=== PATIENT | female | born 1940 | race Caucasian/White ===

== ENCOUNTER → 2017-04-19 | Outpatient (CLI) | payer BC ==
--- NOTE | 2017-04-19 13:41 | MAMMOGRAPHY REPORT ---
BILATERAL DIGITAL SCREENING MAMMOGRAM TOMOSYNTHESIS WITH CAD: 04/19/2017 CLINICAL HISTORY: Routine screening. TECHNIQUE: Breast tomosynthesis in addition to standard 2D mammography was performed. Current study was also evaluated with a Computer Aided Detection (CAD) system. COMPARISON: Comparison is made to exams dated: 04/13/2016 mammogram, 04/08/2015 mammogram, 04/02/2014 m ammogram, 03/27/2013 mammogram, 03/21/2012 mammogram, and 03/16/2011 mammogram - [facility]. BREAST COMPOSITION: The tissue of both breasts is heterogeneously dense, which may obscure small mas ses. FINDINGS: No suspicious masses, calcifications, or areas of architectural distortion are noted in ei ther breast. There has been no significant interval change compared to prior exams. Scattered bilater al benign-appearing calcifications are not significantly changed. IMPRESSION: ACR BI-RADS CATEGORY 2: BENIGN There is no mammographic evidence of malignancy. A 1 year screening mammogram is recommended. The pa tient will receive written notification of the results. Approximately 10% of breast cancers are not detected with mammography. A negative mammographic report should not delay biopsy if a clinically suggestive mass is present. Magdalena Chapman M.D. ah/:04/19/2017 09:53:46 Hydro Operator: Dre SMITH)(M), [facility] letter sent: Normal 1/2 BI-RADS Code: ACR BI-RADS Category 2: Benign
== END | disposition home or self-care (01) ==
LOC: C.MAMM 09:27
PROVIDERS: ATTEND Internal Medicine
DX: Z12.31 Encounter for screening mammogram for malignant neoplasm of breast (principal)

== ENCOUNTER → 2017-06-05 | Outpatient (CLI) | payer BC ==
[2017-06-05 12:15] LABS: HEMATOCRIT 40.8 % (37-47); MEAN CELL VOLUME 92.3 fL (80-100); MEAN CORPUSCULAR HEMOGLOBIN 30.1 pg (25-34); MEAN CORPUSCULAR HGB CONC 32.6 g/dl (32-36); MEAN PLATELET VOLUME 9.9 fL (7.4-10.4); PLATELET COUNT 252 K/uL (130-400); RED BLOOD COUNT 4.42 M/uL (4.2-5.4); WHITE BLOOD COUNT 6.95 K/uL (4.8-10.8)
[2017-06-05 12:37] LABS: ALT/SGPT 17 U/L (12-78); BLOOD UREA NITROGEN 18 mg/dl (7-18); CALCIUM 9.6 mg/dl (8.5-10.1); CARBON DIOXIDE 28 mmol/L (21-32); CHLORIDE 104 mmol/L (98-107); CHOLESTEROL 136 mg/dl (0-200); CREATININE 0.97 mg/dl (0.60-1.20); GLUCOSE 93 mg/dl (70-99); POTASSIUM 4.1 mmol/L (3.5-5.1); SODIUM 139 mmol/L (136-145)
[2017-06-05 12:48] LABS: ALB/GLOB RATIO 0.9 (0.9-2); ALKALINE PHOSPHATASE 110 U/L (45-117); AST/SGOT 14 U/L (15-37); CHOLESTEROL/HDL RATIO 1.8; HDL CHOLESTEROL 76 mg/dl; LDL CHOLESTEROL CALCULATED 43 mg/dl; TRIGLYCERIDES 83 mg/dl (0-150); VERY LOW DENSITY LIPOPROT CALC 17 mg/dl
== END | disposition home or self-care (01) ==
LOC: C.LABPBG 07:54
PROVIDERS: ATTEND Internal Medicine Cardiovascular Disease
DX: I34.0 Nonrheumatic mitral (valve) insufficiency (principal)

== ENCOUNTER → 2018-01-24 | Outpatient (CLI) | payer BC ==
[~2018-01-24] MED LIST: ATOR-24 PO; CHOL100027 PO; DILT-113 PO; LOSA1TAB PO; METO-452 PO; OMEG10007 PO; OXYC-57 PO; WARF-280 PO; ZNT150 PO
[2018-01-24 14:34] LABS: BASO % 0.2 %; BASO ABS # 0.02 K/uL (0-0.2); EOS % 1.4 %; EOS ABS # 0.12 K/uL (0-0.5); HEMATOCRIT 37.7 % (37-47); HEMOGLOBIN 12.1 g/dL (12.0-16.0); IG# 0.01 K/uL (0.00-0.02); LYMPH % 36.4 %; LYMPH ABS # 3.03 K/uL (1.2-3.4); MEAN CELL VOLUME 90.4 fL (80-100); MEAN CORPUSCULAR HGB CONC 32.1 g/dl (32-36); MEAN PLATELET VOLUME 9.7 fL (7.4-10.4); MONO % 7.3 %; MONO ABS # 0.61 K/uL (0.11-0.59); NEUT % 54.6 %; NEUT ABS # 4.53 K/uL (1.4-6.5); PLATELET COUNT 289 K/uL (130-400); RED CELL DISTRIBUTION WIDTH CV 14.7 % (11.5-14.5); RED CELL DISTRIBUTION WIDTH SD 48.1 fL (36.4-46.3); WHITE BLOOD COUNT 8.32 K/uL (4.8-10.8)
[2018-01-24 14:42] LABS: INR 1.9 (0.9-1.1)
[2018-01-24 15:07] LABS: ALBUMIN 3.6 gm/dl (3.4-5.0); ALKALINE PHOSPHATASE 96 U/L (45-117); ALT/SGPT 16 U/L (12-78); AST/SGOT 17 U/L (15-37); BLOOD UREA NITROGEN 16 mg/dl (7-18); CALCIUM 9.7 mg/dl (8.5-10.1); CARBON DIOXIDE 29 mmol/L (21-32); CREATININE 0.76 mg/dl (0.60-1.20); GLUCOSE 81 mg/dl (70-99); POTASSIUM 3.7 mmol/L (3.5-5.1); SODIUM 139 mmol/L (136-145); TOTAL PROTEIN 7.4 gm/dl (6.4-8.2)
== END | disposition home or self-care (01) ==
LOC: C.LAB1850 12:42
PROVIDERS: ATTEND Internal Medicine
DX: K56.609 Unspecified intestinal obstruction, unspecified as to partial versus complete obstruction (principal); Z79.01 Long term (current) use of anticoagulants

== ENCOUNTER 2019-03-04 05:13 | Inpatient (IN) ==
--- NOTE | 2019-02-12 14:04 | PAT Medication Instructions ---
Medication Instructions Date of Service February 12, 2019 Home Medications Medication Instructions Recorded metoprolol succinate 25 mg PO QPM 30 Days #15 tab 04/24/18 warfarin 2.5 mg PO DAILY #0 tab 04/24/18 omega 9-jnf-qql-fish oil [Fish Oil] 1 cap PO QAM atorvastatin 20 mg PO HS diltiazem HCl 180 mg PO QAM metoprolol succinate 25 mg PO QPM warfarin 2.5 mg PO DAILY cholecalciferol (vitamin D3) [Vitamin D3] 4,000 unit PO QAM ASK your prescriber and surgeon warfarin 2.5 mg PO DAILY STOP taking 2 weeks before surgery (or as soon as possible if surgery is within 2 weeks) omega 9-xij-bdn-fish oil [Fish Oil] 1 cap PO QAM DO NOT take the morning of surgery cholecalciferol (vitamin D3) [Vitamin D3] 4,000 unit PO QAM Take morning of surgery With a small sip of water, OTHERWISE NOTHING TO EAT OR DRINK AFTER MIDNIGHT: diltiazem HCl 180 mg PO QAM Take evening before surgery atorvastatin 20 mg PO HS metoprolol succinate 25 mg PO QPM Other Notes If you have any questions please call us at [phone] or [phone] or [phone] or [phone]
--- NOTE | 2019-02-13 09:56 | Anesthesiology Consultation ---
Date of Service February 13, 2019 Assessment & Plan (1) Encounter for pre-operative examination: - Cardio: 02/20/19: "She is currently stable and asymptomatic from a cardiovascular standpoint with no anginal symptoms occurring at >4 METS of activity. She has known severe mitral regurgitation for which she has declined surgical intervention, but fortunately, she has no evidence of congestive heart failure. Her heart rate and blood pressure are well controlled. Given this information, the patient is at an acceptable risk to proceed with upcoming surgery without any additional cardiovascular testing or intervention. Recommend close monitoring and avoidance of hypotension, hypertension, tachycardia, hypoxia, and significant anemia throughout the perioperative period to reduce myocardial oxygen demand and meet myocardial oxygen delivery." - Check coags AM DOS Chart Review Chart Review: Acceptable Risk for Surgery and Patient seen in Pre Admission Testing Teaching & Discussion Pre-Anesthesia Teaching/Discussion Notes: Instructed NPO after midnight before surgery,except medications with 15 cc of water. Medication instructions provided according to the PAT guidelines. History Surgery Operation Date: 03/04/19 07:00 Proposed Procedures p Laparoscopic Incisional Hernia Repair, Possible Open Incisional Hernia Repair - Albert Rader MD, FACS Height/Weight Height: 5 ft 2 in Weight: 73.7 kg Allergies Allergy/AdvReac Type Severity Reaction Status Date / Time blue dye Allergy Intermediate hives Verified 02/20/19 09:51 dabigatran etexilate Allergy Intermediate hives Verified 02/20/19 09:51 diphenhydramine Allergy Intermediate HIVES Verified 02/20/19 09:51 amoxicillin Allergy Mild hives Verified 02/20/19 09:51 lisinopril Allergy Mild hives Verified 02/20/19 09:51 red dye Allergy Mild hives Verified 02/20/19 09:51 yellow dye Allergy Mild hives Verified 02/20/19 09:51 Medications Home Medications Medication Instructions Recorded Confirmed Last Taken omega 6-baf-dvi-fish oil [Fish Oil] 1 cap PO QAM #0 cap 12/02/17 02/20/19 03/19/18 atorvastatin 20 mg PO HS #0 tab 03/01/18 02/20/19 04/01/18 19:00 diltiazem HCl 180 mg PO QAM 04/24/18 02/20/19 Unknown metoprolol succinate 25 mg PO QPM 30 Days #15 tab 04/24/18 02/20/19 Unknown warfarin 2.5 mg PO DAILY #0 tab 04/24/18 02/20/19 Unknown cholecalciferol (vitamin D3) 4,000 unit PO QAM 02/11/19 02/20/19 Unknown [Vitamin D3] Past Medical History Medical History Atrial fibrillation Dyslipidemia Mitral regurgitation "severe", asymptomatic Hypertension Cardiomyopathy "resolved" Hx of intestinal obstruction 11/2017 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 Exercise / Class Metabolic Activity III < 4 Walking/Shop/Light housework Past Family History Family History Other FHx: cancer FHx: heart disease Past Surgical History Surgical History History of colostomy History of colostomy reversal laparoscopic reversal of colostomy: 04/02/18: MAC#3, ETT 7.0 at [facility] History of repair of rectocele Hx of appendectomy Hx of colonoscopy 03/06/18 Hx of exploratory laparotomy WITH BOWEL RESECTION AND COLOSTOMY (11/2017) Hx of eye surgery LEFT Hx of hysterectomy Past Anesthesia History No Hx of Anesthesia Complications and No Family Hx of Anesthesia Complications History of PONV No Hx of PONV and Hx of Motion Sickness Social History Smoking Status: Never smoker Do You Dip or Chew Tobacco: No Hx Alcohol Use: No Hx Substance Use: No Review of Systems Patient denies chest pain, shortness of breath, reflux, cough, wheezing, palpitations. Physical Exam Vital Signs VITALS BP 120/79 P 76 TEMP 97.7 SP02 94%RA RESP 18 PHYSICAL Full neck and c-spine range of motion. Full TMJ range of motion. TMD 2.5 finger breaths Mallampati Score 2 Dentition: missing sides/molars Lungs: clear throughout to auscultation Cardiac: regular rate, irregular rhythm, I/ systolic murmur Spine: normal Carotid arteries: negative bruit Extremities: no edema Testing Laboratory Results 02/13/19 10:01 02/13/19 10:01 Electrocardiogram Date: 02/13/19 A. fib with PVCs or aberrantly conducted complexes. Right superior axis deviation. NS IVCB. No significant change compared to 12/03/17 EKG per cardio. Chest X-Ray Date: 04/02/18 Cardiac silhouette is enlarged, unchanged. Status post removal of the previously seen enteric tube. Right-sided PICC has been placed in the interval distal tip terminating in the expected region of the mid SVC. No postprocedural pneumothorax identified. No pleural effusion or overt pulmonary edema. Mild right hemidiaphragm elevation. Subsegmental left basilar opacities suggest atelectasis or scarring. Degenerative changes are noted about the shoulders and spine. Echocardiogram Date: 12/04/17 EF 50-55%. No RWMA. Severe LAD/RAD. Severe MR. Mild NJ. Mild pulmonary HTN (PASP 35-40mmhg). Dilated coronary sinus. Mild to moderate TR. Thickened MV leaflets. Grade II DD.
[2019-02-13 10:45] LABS: Basophils # (auto) 0.02 K/uL (0-0.2); Basophils % (auto) 0.3 %; Eosinophils # (auto) 0.16 K/uL (0-0.5); Eosinophils % (auto) 2.2 %; Hematocrit (blood only) 42.1 % (37-47); Hemoglobin 13.8 g/dL (12.0-16.0); Immature Granulocytes # (auto) 0.02 K/uL (0.00-0.02); Immature Granulocytes % (auto) 0.3 %; Lymphocytes # (auto) 1.94 K/uL (1.2-3.4); Lymphocytes % (auto) 27.1 %; Mean Corpuscular Hemoglobin 30.3 pg (25-34); Mean Corpuscular Hgb Conc 32.8 g/dL (32-36); Mean Corpuscular Volume 92.5 fL (80-100); Mean Platelet Volume 9.9 fL (7.4-10.4); Monocytes # (auto) 0.53 K/uL (0.11-0.59); Monocytes % (auto) 7.4 %; Neutrophils % (auto) 62.7 %; Platelet Count 230 K/uL (130-400); RDW Standard Deviation 47.2 fL (36.4-46.3); Red Blood Count 4.55 M/uL (4.2-5.4); White Blood Count 7.17 K/uL (4.8-10.8)
[2019-02-13 13:38] LABS: BUN Creatinine Ratio 15.4 (10-20); Calcium 8.9 mg/dl (8.5-10.1); Est GFR (African American) 71.9; Est GFR (Non-African American) 62.1; Potassium 4.1 mmol/L (3.5-5.1)
[2019-03-04 05:58] LABS: INR 1.2 (0.9-1.1); Partial Thromboplastin Ratio 1.1; Partial Thromboplastin Time 29.6 Seconds (21.0-31.0); Prothrombin Time 12.4 Seconds (9.0-12.0)
[2019-03-04] MEDS ORDERED: CLINDAMYCIN 900 MG / 50ML D5W IV SCH (06:00)
[2019-03-04] MEDS ORDERED: LR 15ML/HR IV SCH (06:00)
[2019-03-04] MEDS ORDERED: BUPIVACAINE 0.5 % 5 MG/1 ML MPF 30ML VIAL ONE (06:42)
[2019-03-04] MEDS ORDERED: CEFAZOLIN 250 MG/ML 1 GM VIAL ONE (06:42)
[2019-03-04] MEDS ORDERED: LIDOCAINE HCL 2% 2 ML VIAL/AMP(20MG/ML) INFIL ONE (06:47)
[2019-03-04] MEDS ORDERED: GLYCOPYRROLATE 0.2 MG/ML VIAL ONE (06:47)
[2019-03-04] MEDS ORDERED: fentaNYL citrate 100 MCG/2 ML VIAL ONE (06:47)
[2019-03-04] MEDS ORDERED: NEOSTIGMINE METHYLSULFATE 5 MG/5 ML SYR ONE (06:47)
[2019-03-04] MEDS ORDERED: ONDANSETRON INJ 2 MG/ML 2 ML VIAL ONE (06:47)
[2019-03-04] MEDS ORDERED: PROPOFOL IV EMULSION 10 MG/ML 20 ML VIAL IV ONE (06:47)
[2019-03-04] MEDS ORDERED: MIDAZOLAM HCL 1 MG/ML 2ML VIAL ONE (06:47)
[2019-03-04] MEDS ORDERED: DEXAMETHASONE SOD INJ 4 MG/ML VIAL ONE (06:47)
[2019-03-04] MEDS ORDERED: KETOROLAC 30 MG/ML VIAL IV PRN (07:03)
[2019-03-04] MEDS ORDERED: ATROPINE SULFATE 0.1 MG/ML 10ML SYR IV PRN (07:03)
[2019-03-04] MEDS ORDERED: LABETALOL HCL IV 5 MG/ML 20ML IV PRN (07:03)
[2019-03-04] MEDS ORDERED: ONDANSETRON INJ 2 MG/ML 2 ML VIAL IV PRN ×2 (07:03→11:18)
[2019-03-04] MEDS ORDERED: ePHEDrine sulfate 50 MG/ML SYR ONE (07:26)
--- NOTE | 2019-03-04 08:51 | Operative Report ---
Post Operative Report Pre & Post Diagnosis Operation Date: 03/04/19 07:00 Pre-Op Diagnosis: Incisional Hernia Post-Op Diagnosis: Incisional Hernia severe adhesions- omentum and small bowel Procedure Operation Date: 03/04/19 07:00 Actual Procedures p Laparoscopic Incisional Hernia Repair with mesh - Albert Rader MD, FACS enterolysis Surgeon Albert Rader MD, FACS Machine Tool Mechanic Zhane Prather Estimated Blood Loss 20 Findings Consistent with Post-Op Diagnosis Specimens none Description of Procedure see dictation I attest to the content of the Intraoperative Record and any orders documented therein. Any exceptions are noted below.
[2019-03-04] MEDS ORDERED: ACETAMINOPHEN 1,000 MG/100 ML VIAL IV ONE (09:01)
[2019-03-04] MEDS ORDERED: ACETAMINOPHEN 1000 MG/100 ML IV IV ONE (09:20)
[2019-03-04] MEDS: HYDROmorphone INJ 1 MG/ML SYRINGE IV PRN ×4 (09:48→10:03)
--- NOTE | 2019-03-04 10:06 | Anesthesiology Progress Note ---
Date of Service March 04, 2019 Anesthesia Post Procedure Vital Signs Vital Signs: Temp Pulse Pulse Resp BP Pulse Ox 03/04/19 10:00 66 12 115/71 95 03/04/19 09:50 66 20 118/64 96 03/04/19 09:40 73 20 116/63 98 03/04/19 09:30 77 20 122/72 98 03/04/19 09:20 81 16 119/72 98 03/04/19 09:11 36.7 C 74 16 129/74 98 03/04/19 05:36 36.7 C 83 16 130/62 95 Pain Intensity Abdomen: Pain Intensity: 5 Transfer of Care Handoff Completed per policy Notes Mental Status: alert / awake / arousable Patient Amnestic to Procedure: Yes Nausea / Vomiting: adequately controlled Pain: adequately controlled Airway Patency, RR, SpO2: stable & adequate BP & HR: stable & adequate Hydration State: stable & adequate Anesthetic Complications: no major complications apparent
--- NOTE | 2019-03-04 10:10 | Operative Report ---
DATE OF OPERATION: 03/04/2019 DATE OF OPERATION: 03/04/2019 NAME OF OPERATION: Laparoscopic incisional hernia repair with extensive enterolysis. STAFF SURGEON: Albert Rader MD SYNTHETIC RESIN OPERATOR: Larry Prather PA-C and Lida Reynoso. ANESTHESIA: General. DESCRIPTION OF PROCEDURE: The patient was brought in the operating room and placed on the operating table in supine position. Pneumatic stockings, Nguyen catheter, orogastric tube were placed. My research lab assistant helped with prepping, draping, repair of the hernia and closure of the wounds. Initially, incision was made in the right upper quadrant, carrying dissection down, placing a Veress needle producing pneumoperitoneum. A balloon cannula was then placed at this site and then under visualization, a 5 mm port was placed on the right than left. The patient had extensive adhesions. We began taking down some of the adhesions. We used a 5 mm scope also to place 2 additional 5 mm ports. Therefore, 2 were on the right, 2 on the left. The omentum and small bowel was severely adherent to the anterior abdominal wall. These were slowly taken down. The hernia defect identified. There were small bowel and omentum within the defect. The tissue was gradually reduced and then the tissue around the hernia site was mobilized with some mild bleeding in the left lower quadrant which was controlled with 5 mm clips. At this point, a 15 cm piece of Surgimesh was placed into the abdomen. The polypropylene was brought up toward the fascia, the silicone toward the bowel. It was secured in 2 rows of absorbable tacks, 1 outer and 1 inner. With good placement, all ports were then removed. We did use some irrigation and aspiration. Hemostasis was maintained. All ports were removed. The fascia at the right upper quadrant site closed using interrupted 0 PDS suture. All skin was closed using 4-0 nylon suture. The patient was transferred to recovery room in stable condition. I attest to the content of the Intraoperative Record and any orders documented therein. Any exception s are noted below.
[2019-03-04] MEDS ORDERED: PROMETHAZINE HCL 12.5 MG in SODIUM CHLORIDE 0.9% 50 ML IV PRN (11:18)
[2019-03-04] MEDS ORDERED: HYDROmorphone INJ 1 MG/ML SYRINGE IV PRN (11:18)
[2019-03-04] MEDS: HYDROmorphone INJ 0.5 MG/0.5 ML SYR IV PRN ×2 (11:48→20:37)
[2019-03-04] MEDS: SODIUM CHLORIDE 0.9% 1000ML 1,000 ML IV SCH (11:51)
--- NOTE | 2019-03-04 12:03 | Hospitalist Consultation ---
Date of Consultation March 04, 2019 Assessment & Plan (1) Incisional hernia: s/p lap repair with Dr. Rader on 03/04 Diet and DVT proph as per surgery Pre-op Hb 13.8 (2) Atrial fibrillation: continue home meds Coumadin being held post-op, has been on hold since 02/26 Would resume as soon as deemed appropriate by surgery (3) Hyperlipidemia: continue home meds (4) Mitral regurgitation: (5) Hypertension: continue home meds (6) DVT prophylaxis: As per surgery Will ideally resume coumadin as soon as possible History of Present Illness Attending Physician: Albert Rader MD, FACS History of Present Illness 79 y/o F who was admitted on 03/04 s/p lap incisional hernia repair with Dr. Rader. Pt is doing well post-op. She does have some abd pain related to her incisions. Tolerating PO without issue. Pt denies fever, SOB, chest pain, n/v/c/d, LE swelling. Allergies Allergy/AdvReac Type Severity Reaction Status Date / Time blue dye Allergy Intermediate hives Verified 03/04/19 05:24 dabigatran etexilate Allergy Intermediate hives Verified 03/04/19 05:24 diphenhydramine Allergy Intermediate HIVES Verified 03/04/19 05:24 amoxicillin Allergy Mild hives Verified 03/04/19 05:24 lisinopril Allergy Mild hives Verified 03/04/19 05:24 red dye Allergy Mild hives Verified 03/04/19 05:24 yellow dye Allergy Mild hives Verified 03/04/19 05:24 Home Medications Home Medications Medication Instructions Recorded Confirmed Type omega 1-apb-pyi-fish oil [Fish Oil] 1 cap PO QAM #0 cap 12/02/17 03/04/19 History atorvastatin 20 mg PO HS #0 tab 03/01/18 03/04/19 History diltiazem HCl 180 mg PO QAM 04/24/18 03/04/19 History metoprolol succinate 25 mg PO QPM 30 Days #15 tab 04/24/18 03/04/19 Rx warfarin 2.5 mg PO DAILY #0 tab 04/24/18 03/04/19 Rx cholecalciferol (vitamin D3) 4,000 unit PO QAM 02/11/19 03/04/19 History [Vitamin D3] Patient History Medical History Atrial fibrillation Dyslipidemia Mitral regurgitation "severe", asymptomatic Hypertension Hx of intestinal obstruction 11/2017 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 Rader 03/04/19 History of repair of rectocele Hx of appendectomy Hx of colonoscopy 03/06/18 Hx of exploratory laparotomy WITH BOWEL RESECTION AND COLOSTOMY (11/2017) Hx of eye surgery LEFT Hx of hysterectomy Family History Other FHx: cancer FHx: heart disease Social History Preferred Language: Greek Communication Ability: Effective Visual Impairment: No Limitations Radiology Supervisor Required: No Beliefs That Will Affect Care: None Current Living Situation: Other Current Living Situation Comment: pt son lives with her Feels Safe at Home: Yes Safety Concerns: Feels Safe At This Time Smoking Status: Never smoker Do You Dip or Chew Tobacco: No ; Second Hand Exposure: No ; Hx Alcohol Use: No Hx Substance Use: No Review of Systems Review of Systems: Pertinent positives and negatives reviewed in HPI--all others negative Physical Exam Constitutional: WD/WN, vitals as above Eyes: normal visual ta by confrontation and + anicteric sclerae Neck: normal visual inspection and trachea midline Respiratory: normal respiratory effort, lungs clear to auscultation Cardiovascular: Rate/Rhythm: regular rate and regular rhythm Gastrointestinal (Abdomen): Inspection/Auscultation: abdomen not distended Percussion/Palpation: abdomen soft Musculoskeletal: Head/Neck/Chest: normocephalic and head atraumatic negative for edema, peripheral pulses intact Skin: no rashes, warm and dry Neurologic: awake; not confused Speech / Cognition: normal speech Psychiatric: A+Ox3, euthymic affect Results & Data Vital Signs (Past 12 Hours) Vital Signs Temp Pulse Pulse Resp BP Pulse Ox 03/04/19 11:32 69 17 119/72 96 03/04/19 10:58 72 16 114/70 94 03/04/19 10:15 36.5 C 70 14 114/64 95 03/04/19 10:00 66 12 115/71 95 03/04/19 09:50 66 20 118/64 96 03/04/19 09:40 73 20 116/63 98 03/04/19 09:30 77 20 122/72 98 03/04/19 09:20 81 16 119/72 98 03/04/19 09:11 36.7 C 74 16 129/74 98 03/04/19 05:36 36.7 C 83 16 130/62 95 PG Care Time/CCT Total # of Minutes Spent Total Time Spent with Patient: Total time spent is greater than 50% in coordination of care (as documented) at patient's floor/unit and/or counseling patient: (1) Atrial fibrillation Atrial fibrillation type: chronic Qualified Code(s): I48.2 - Chronic atrial fibrillation (2) Hypertension Hypertension type: essential hypertension Qualified Code(s): I10 - Essential (primary) hypertension
[2019-03-04] MEDS: DOCUSATE SODIUM/SENNA 50/8.6MG TAB PO SCH (19:45)
[2019-03-04] MEDS: METOPROLOL SUCC 50MG EXT REL TAB PO SCH (19:45)
[2019-03-04] MEDS: ATORVASTATIN 20 MG TAB PO SCH (19:46)
[2019-03-05] MEDS: HYDROmorphone INJ 0.5 MG/0.5 ML SYR IV PRN ×2 (03:42→17:46)
[2019-03-05] MEDS: SODIUM CHLORIDE 0.9% 1000ML 1,000 ML IV SCH ×2 (03:44→22:52)
[2019-03-05 04:31] LABS: Hematocrit (blood only) 36.7 % (37-47); Immature Granulocytes # (auto) 0.02 K/uL (0.00-0.02); Immature Granulocytes % (auto) 0.2 %; Lymphocytes # (auto) 1.11 K/uL (1.2-3.4); Lymphocytes % (auto) 12.4 %; Mean Corpuscular Hemoglobin 30.1 pg (25-34); Mean Corpuscular Hgb Conc 32.7 g/dL (32-36); Mean Platelet Volume 9.1 fL (7.4-10.4); Monocytes # (auto) 0.48 K/uL (0.11-0.59); Monocytes % (auto) 5.3 %; Neutrophils # (auto) 7.37 K/uL (1.4-6.5); Neutrophils % (auto) 82.1 %; Platelet Count 202 K/uL (130-400); RDW Coefficient of Variation 14.2 % (11.5-14.5); RDW Standard Deviation 48.5 fL (36.4-46.3); Red Blood Count 3.99 M/uL (4.2-5.4); White Blood Count 8.98 K/uL (4.8-10.8)
[2019-03-05 04:53] LABS: Albumin Level 3.1 gm/dl (3.4-5.0); BUN Creatinine Ratio 20.9 (10-20); Calcium 8.4 mg/dl (8.5-10.1); Creatinine Clr Calc Pharmacy 47.2 ml/min; Est GFR (African American) 69.1; Est GFR (Non-African American) 59.6; Magnesium 2.1 mg/dl (1.8-2.4); Potassium 4.5 mmol/L (3.5-5.1)
[2019-03-05 04:56] LABS: Albumin Globulin Ratio 0.9 (0.9-2); Bilirubin,Total 0.7 mg/dl (0.2-1); Globulin 3.3 gm/dl (2.5-4.0); Phosphorus 3.5 mg/dl (2.5-4.9); Total Protein 6.4 gm/dl (6.4-8.2)
[2019-03-05] MEDS: Heparin Adult STANDARD Wt-Based Dextrose 5% 25,000 units/500 mL IV SCH (06:08)
[2019-03-05] MEDS: CEFAZOLIN 1,000 MG in SYRINGE 0 ML IV SCH ×3 (06:12→21:45)
--- NOTE | 2019-03-05 06:19 | Surgery Progress Note ---
Date of Service March 05, 2019 Assessment & Plan (1) History of incisional hernia repair: had extensive adhesions- slowly adv diet pt stable, madrigal in place will d/c add IV Heparin- low dose, increase slowly and give coumadin 5 mg today cont IV atbx, try to mobilize po for now, monitor GI function- may need IV meds if fails Results & Data Vital Signs (Past 12 Hours) Vital Signs Temp Pulse Pulse Resp BP Pulse Ox 03/05/19 04:00 36.5 C 84 18 99/59 L 94 03/04/19 23:54 36.5 C 81 16 136/75 94 03/04/19 19:56 36.5 C 71 18 105/64 96 PG Care Time/CCT Total # of Minutes Spent Total Time Spent with Patient: Total time spent is greater than 50% in coordination of care (as documented) at patient's floor/unit and/or counseling patient:
[2019-03-05] MEDS: dilTIAZem ER 180 MG CAPCR PO SCH (08:15)
[2019-03-05] MEDS: DOCUSATE SODIUM/SENNA 50/8.6MG TAB PO SCH ×2 (08:15→20:59)
[2019-03-05] MEDS: MAGNESIUM HYDROXIDE SUSP 30 ML UDC PO SCH ×2 (08:19→20:59)
[2019-03-05] MEDS: HYDROCODONE/ACETAMOPHEN 5/325MG TAB PO PRN ×2 (08:24→15:20)
--- NOTE | 2019-03-05 08:29 | Anesthesiology Progress Note ---
Date of Service March 05, 2019 Anesthesia Post Procedure Vital Signs Vital Signs: Temp Pulse Pulse Resp BP Pulse Ox 03/05/19 07:49 36.4 C L 87 19 105/61 92 03/05/19 04:00 36.5 C 84 18 99/59 L 94 03/04/19 23:54 36.5 C 81 16 136/75 94 03/04/19 19:56 36.5 C 71 18 105/64 96 03/04/19 15:08 36.3 C L 86 17 108/66 97 03/04/19 12:25 83 16 120/74 93 03/04/19 11:32 69 17 119/72 96 03/04/19 10:58 72 16 114/70 94 03/04/19 10:15 36.5 C 70 14 114/64 95 03/04/19 10:00 66 12 115/71 95 03/04/19 09:50 66 20 118/64 96 03/04/19 09:40 73 20 116/63 98 03/04/19 09:30 77 20 122/72 98 03/04/19 09:20 81 16 119/72 98 03/04/19 09:11 36.7 C 74 16 129/74 98 Pain Intensity Abdomen: Pain Intensity: 5 Notes Mental Status: alert / awake / arousable and participated in evaluation Patient Amnestic to Procedure: Yes Nausea / Vomiting: adequately controlled Pain: adequately controlled Airway Patency, RR, SpO2: stable & adequate BP & HR: stable & adequate Hydration State: stable & adequate Anesthetic Complications: no major complications apparent and Pt Satisfied with anesthetic care
[2019-03-05 15:03] LABS: Partial Thromboplastin Ratio 1.4; Partial Thromboplastin Time 37.5 Seconds (21.0-31.0)
[2019-03-05] MEDS: WARFARIN SOD 5 MG TAB PO SCH (15:21)
--- NOTE | 2019-03-05 18:29 | Hospitalist Progress Note ---
Date of Service March 05, 2019 Assessment & Plan (1) Incisional hernia: s/p lap repair with Dr. Rader on 03/04 Diet and DVT proph as per surgery Itchiness patient reports usually has post anesthesia. Patient said that prednisone helps. Pre-op Hb 13.8 (2) Atrial fibrillation: continue home meds Coumadin being held post-op, has been on hold since 02/26 Resume as soon as deemed appropriate by surgery per Dr. Rader (3) Hyperlipidemia: continue home meds (4) Mitral regurgitation: (5) Hypertension: continue home meds (6) DVT prophylaxis: As per surgery Resume coumadin per Dr. Rader Subjective Patient seen and examined at the bedside. POD#1 status post right hernia repair with extensive adhesions. Patient is doing well this morning except that she complains of itchiness. Patient denies fever chills shortness of breath swollen tongue hives chest pain frequency urgency abdominal pain hemoptysis or hematuria and melena. Review of Systems Review of Systems: All systems reviewed & are unremarkable except as noted in HPI & below Physical Exam Constitutional: WD/WN, vitals as above Eyes: PERRL, conjunctivae normal, anicteric sclerae ENMT: external ear and nose normal, oropharynx normal Neck: trachea midline, no thyromegaly Respiratory: normal respiratory effort, lungs clear to auscultation Cardiovascular: RRR, no murmur, no edema Chest (Breasts): normal inspection/palpation of breasts Gastrointestinal (Abdomen): Right hernial incision clean dry and intact. Skin: no rashes, warm and dry Neurologic: patellar DTR's 2+ bilat, sensation intact Psychiatric: A+Ox3, euthymic affect Genitourinary: no vaginal lesions, no adnexal mass Lymphatic: no cervical or axillary lymphadenopathy Results & Data Vital Signs (Past 12 Hours) Vital Signs Temp Pulse Pulse Resp BP Pulse Ox 03/05/19 15:42 36.3 C L 68 20 96 03/05/19 10:56 36.3 C L 106 H 18 104/56 L 94 03/05/19 07:49 36.4 C L 87 19 105/61 92 PG Care Time/CCT Total # of Minutes Spent Total Time Spent with Patient: Total time spent is greater than 50% in coordination of care (as documented) at patient's floor/unit and/or counseling patient: (1) Atrial fibrillation Atrial fibrillation type: chronic Qualified Code(s): I48.2 - Chronic atrial fibrillation (2) Hypertension Hypertension type: essential hypertension Qualified Code(s): I10 - Essential (primary) hypertension
[2019-03-05] MEDS ORDERED: methylPREDNISolone 30 MG in SYRINGE 0 ML IV ONE (19:00)
[2019-03-05] MEDS: METOPROLOL SUCC 50MG EXT REL TAB PO SCH (20:59)
[2019-03-05] MEDS: ATORVASTATIN 20 MG TAB PO SCH (20:59)
[2019-03-05] MEDS ORDERED: Nursing to Pharmacy Communication ONE (21:57)
[2019-03-06] MEDS: CEFAZOLIN 1,000 MG in SYRINGE 0 ML IV SCH ×3 (05:37→21:17)
[2019-03-06 05:50] LABS: Partial Thromboplastin Ratio 1.8; Partial Thromboplastin Time 49.7 Seconds (21.0-31.0)
--- NOTE | 2019-03-06 07:22 | Surgery Progress Note ---
Date of Service March 06, 2019 Assessment & Plan (1) History of incisional hernia repair: stable- bowels moving- feels ok to reg floor- adv diet cont IV Heparin today and Coumadin today mobilize Results & Data Vital Signs (Past 12 Hours) Vital Signs Temp Pulse Pulse Resp BP Pulse Ox 03/06/19 07:09 36.3 C L 80 18 124/73 92 03/06/19 04:00 36.4 C L 70 18 117/69 91 03/06/19 00:08 36.3 C L 72 17 116/72 94 03/05/19 19:32 36.3 C L 61 18 105/65 95 PG Care Time/CCT Total # of Minutes Spent Total Time Spent with Patient: Total time spent is greater than 50% in coordination of care (as documented) at patient's floor/unit and/or counseling patient:
[2019-03-06] MEDS: Heparin Adult STANDARD Wt-Based Dextrose 5% 25,000 units/500 mL IV SCH (08:22)
[2019-03-06] MEDS: dilTIAZem ER 180 MG CAPCR PO SCH (08:22)
[2019-03-06] MEDS: MAGNESIUM HYDROXIDE SUSP 30 ML UDC PO SCH ×4 (08:22→21:18)
[2019-03-06] MEDS: DOCUSATE SODIUM/SENNA 50/8.6MG TAB PO SCH ×2 (08:22→21:18)
[2019-03-06] MEDS: SODIUM CHLORIDE 0.9% 1000ML 1,000 ML IV SCH (08:27)
[2019-03-06] MEDS: HYDROmorphone INJ 0.5 MG/0.5 ML SYR IV PRN (08:32)
[2019-03-06 08:36] LABS: BUN Creatinine Ratio 24.8 (10-20); Calcium 8.4 mg/dl (8.5-10.1); Est GFR (African American) 77.2; Est GFR (Non-African American) 66.6; Hemoglobin 11.3 g/dL (12.0-16.0); Magnesium 2.8 mg/dl (1.8-2.4); Mean Corpuscular Hemoglobin 30.6 pg (25-34); Mean Corpuscular Hgb Conc 33.2 g/dL (32-36); Mean Corpuscular Volume 92.1 fL (80-100); Mean Platelet Volume 9.8 fL (7.4-10.4); Platelet Count 196 K/uL (130-400); Potassium 4.5 mmol/L (3.5-5.1); RDW Coefficient of Variation 14.3 % (11.5-14.5); RDW Standard Deviation 48.6 fL (36.4-46.3); Red Blood Count 3.69 M/uL (4.2-5.4); White Blood Count 10.02 K/uL (4.8-10.8)
[2019-03-06 08:41] LABS: INR 1.2 (0.9-1.1); Prothrombin Time 12.5 Seconds (9.0-12.0)
--- NOTE | 2019-03-06 12:07 | Hospitalist Progress Note ---
Date of Service March 06, 2019 Assessment & Plan (1) Incisional hernia: - S/p lap repair on 03/04, POD#2. - Pain control per primary team. - Resumed home Coumadin with Heparin for bridging. - Monitor CBC daily. (2) Atrial fibrillation: - Continue home Diltiazem and Metoprolol as prescribed. - Heparin drip; also resumed home Coumadin, higher dose of 5 mg daily -- INR remains subtherapeutic. (3) Hyperlipidemia: - Continue statin agent as prescribed. (4) Mitral regurgitation: - Severe mitral regurg noted on TTE in November 2017. (5) Hypertension: - Continue Diltiazem and Metoprolol as prescribed. (6) DVT prophylaxis: - Heparin drip and Coumadin. Dispo: Med/surg; will continue to follow. Supervising Physician Co-Signing Physician Notes TANK Supervision Note: I did not personally see or examine the patient today, but I verified all [place] points of TANK Pack's assessment and plan with the following exceptions/additions: None Subjective Pt. is doing well overall. Complains of abd pain post op. Is having BMs. Denies chest pain, SOB. Review of Systems Review of Systems: All systems reviewed & are unremarkable except as noted in HPI & below Constitutional: no fever, no chills, no fatigue and no weakness Respiratory: no cough, no dyspnea, no dyspnea on exertion and no wheezing Cardiovascular: no chest pain, no palpitations and no edema Gastrointestinal: + abdominal pain; no nausea, no vomiting and no constipation Genitourinary: no difficulty urinating Musculoskeletal: no back pain and no joint pain Integumentary: no non-healing lesions Physical Exam Physical Exam: General: Resting comfortably HEENT: NC/AT; PERRLA with EOMI; [place] conjunctiva, MMM. No erythema of posterior pharynx Neck: Supple and nontender Cardiac: RRR Lungs: CTA bilaterally Abdomen: Bowel normoactive X 4; Nontender to palpation Extremities: Warm. No edema present Neuro: No focal weakness Skin: No rash Results & Data Vital Signs (Past 12 Hours) Vital Signs Temp Pulse Resp BP BP Pulse Ox 03/06/19 09:10 94 03/06/19 09:06 36.5 C 75 16 137/83 88 L 03/06/19 07:09 36.3 C L 80 18 124/73 92 03/06/19 04:00 36.4 C L 70 18 117/69 91 03/06/19 00:08 36.3 C L 72 17 116/72 94 Laboratory Results 03/06/19 03/06/19 03/06/19 Range/Units 05:14 05:14 05:14 WBC 10.02 (4.8-10.8) K/uL RBC 3.69 L (4.2-5.4) M/uL Hgb 11.3 L (12.0-16.0) g/dL Hct 34.0 L (37-47) % MCV 92.1 (80-100) fL MCH 30.6 (25-34) pg MCHC 33.2 (32-36) g/dL RDW Std Deviation 48.6 H (36.4-46.3) fL RDW Coeff of Zarina 14.3 (11.5-14.5) % Plt Count 196 (130-400) K/uL MPV 9.8 (7.4-10.4) fL PT 12.5 H (9.0-12.0) Seconds INR 1.2 H (0.9-1.1) APTT (21.0-31.0) Seconds PTT Ratio Sodium 141 (136-145) mmol/L Potassium 4.5 (3.5-5.1) mmol/L Chloride 109 H (98-107) mmol/L Carbon Dioxide 28 (21-32) mmol/L Anion Gap 4.0 (3-11) BUN 21 H (7-18) mg/dl Creatinine 0.84 (0.6-1.2) mg/dl Est Cr Clr Drug Dosing 53.0 ml/min Est GFR ( Amer) 77.2 Est GFR (Non-Af Amer) 66.6 BUN/Creatinine Ratio 24.8 H (10-20) Glucose 157 H (70-99) mg/dl Calcium 8.4 L (8.5-10.1) mg/dl Magnesium 2.8 H (1.8-2.4) mg/dl 03/06/19 03/05/19 Range/Units 05:14 14:46 WBC (4.8-10.8) K/uL RBC (4.2-5.4) M/uL Hgb (12.0-16.0) g/dL Hct (37-47) % MCV (80-100) fL MCH (25-34) pg MCHC (32-36) g/dL RDW Std Deviation (36.4-46.3) fL RDW Coeff of Zarina (11.5-14.5) % Plt Count (130-400) K/uL MPV (7.4-10.4) fL PT (9.0-12.0) Seconds INR (0.9-1.1) APTT 49.7 H* 37.5 H (21.0-31.0) Seconds PTT Ratio 1.8 1.4 Sodium (136-145) mmol/L Potassium (3.5-5.1) mmol/L Chloride (98-107) mmol/L Carbon Dioxide (21-32) mmol/L Anion Gap (3-11) BUN (7-18) mg/dl Creatinine (0.6-1.2) mg/dl Est Cr Clr Drug Dosing ml/min Est GFR ( Amer) Est GFR (Non-Af Amer) BUN/Creatinine Ratio (10-20) Glucose (70-99) mg/dl Calcium (8.5-10.1) mg/dl Magnesium (1.8-2.4) mg/dl PG Care Time/CCT Total # of Minutes Spent Total Time Spent with Patient: Total time spent is greater than 50% in coordination of care (as documented) at patient's floor/unit and/or counseling patient: (1) Atrial fibrillation Atrial fibrillation type: chronic Qualified Code(s): I48.2 - Chronic atrial fibrillation (2) Hypertension Hypertension type: essential hypertension Qualified Code(s): I10 - Essential (primary) hypertension
[2019-03-06] MEDS: WARFARIN SOD 5 MG TAB PO SCH (15:18)
[2019-03-06] MEDS: HYDROCODONE/ACETAMOPHEN 5/325MG TAB PO PRN (19:23)
[2019-03-06] MEDS: METOPROLOL SUCC 50MG EXT REL TAB PO SCH (21:12)
[2019-03-06] MEDS: ATORVASTATIN 20 MG TAB PO SCH (21:12)
[2019-03-07] MEDS: HYDROmorphone INJ 0.5 MG/0.5 ML SYR IV PRN ×3 (03:36→11:09)
[2019-03-07] MEDS: CEFAZOLIN 1,000 MG in SYRINGE 0 ML IV SCH ×3 (05:53→21:21)
--- NOTE | 2019-03-07 06:16 | Surgery Progress Note ---
Date of Service March 07, 2019 Assessment & Plan (1) Incisional hernia: Vitals stable- " Had a rough night "- pain- rec IV meds she looks ok this am- awake, alert IV Hep running Check labs, stop IV Hep, possibly give Coum dose this am possible d/c tomorrow- visiting nurse Results & Data Vital Signs (Past 12 Hours) Vital Signs Temp Pulse Resp BP BP Pulse Ox 03/06/19 23:36 36.5 C 68 20 109/64 93 03/06/19 21:11 84 116/68 PG Care Time/CCT Total # of Minutes Spent Total Time Spent with Patient: Total time spent is greater than 50% in coordination of care (as documented) at patient's floor/unit and/or counseling patient:
[2019-03-07 07:02] LABS: Eosinophils # (auto) 0.02 K/uL (0-0.5); Eosinophils % (auto) 0.2 %; Hematocrit (blood only) 32.4 % (37-47); Hemoglobin 10.4 g/dL (12.0-16.0); Immature Granulocytes # (auto) 0.08 K/uL (0.00-0.02); Immature Granulocytes % (auto) 0.7 %; Lymphocytes # (auto) 2.18 K/uL (1.2-3.4); Lymphocytes % (auto) 20.1 %; Mean Corpuscular Hemoglobin 29.9 pg (25-34); Mean Corpuscular Hgb Conc 32.1 g/dL (32-36); Mean Corpuscular Volume 93.1 fL (80-100); Mean Platelet Volume 9.6 fL (7.4-10.4); Monocytes # (auto) 1.08 K/uL (0.11-0.59); Monocytes % (auto) 9.9 %; Neutrophils % (auto) 69.1 %; Platelet Count 198 K/uL (130-400); RDW Coefficient of Variation 14.7 % (11.5-14.5); RDW Standard Deviation 50.2 fL (36.4-46.3); Red Blood Count 3.48 M/uL (4.2-5.4); White Blood Count 10.86 K/uL (4.8-10.8)
[2019-03-07 07:31] LABS: Albumin Level 2.8 gm/dl (3.4-5.0); BUN Creatinine Ratio 18.9 (10-20); Calcium 7.9 mg/dl (8.5-10.1); Creatinine Clr Calc Pharmacy 48.9 ml/min; Est GFR (Non-African American) 60.4; Magnesium 2.5 mg/dl (1.8-2.4); Potassium 4.1 mmol/L (3.5-5.1)
[2019-03-07 07:32] LABS: INR 1.8 (0.9-1.1); Prothrombin Time 18.1 Seconds (9.0-12.0)
[2019-03-07 07:33] LABS: Partial Thromboplastin Time 53.7 Seconds (21.0-31.0)
[2019-03-07 07:36] LABS: Bilirubin,Total 0.3 mg/dl (0.2-1); Globulin 2.9 gm/dl (2.5-4.0); Phosphorus 1.8 mg/dl (2.5-4.9); Total Protein 5.7 gm/dl (6.4-8.2)
[2019-03-07] MEDS: HYDROCODONE/ACETAMOPHEN 5/325MG TAB PO PRN ×3 (07:40→23:28)
[2019-03-07] MEDS ORDERED: POT PHOSPHATE MONOBASIC W/ SOD TAB PO ONE (08:25)
[2019-03-07] MEDS: DOCUSATE SODIUM/SENNA 50/8.6MG TAB PO SCH ×2 (08:54→20:27)
[2019-03-07] MEDS: dilTIAZem ER 180 MG CAPCR PO SCH (08:54)
[2019-03-07] MEDS: MAGNESIUM HYDROXIDE SUSP 30 ML UDC PO SCH ×2 (08:54→20:26)
[2019-03-07] MEDS ORDERED: FUROSEMIDE 10 MG in SYRINGE 0 ML IV SCH (14:22)
[2019-03-07] MEDS: SODIUM CHLORIDE 0.9% 1000ML 1,000 ML IV SCH (14:29)
--- NOTE | 2019-03-07 15:24 | Hospitalist Progress Note ---
Date of Service March 07, 2019 Assessment & Plan (1) Incisional hernia: - S/p lap repair on 03/04, POD#3. - Pain control per primary team. - Resumed home Coumadin; d/c Heparin drip. - Monitor CBC daily. (2) Atrial fibrillation: - Continue home Diltiazem and Metoprolol as prescribed. - Resumed home Coumadin, higher dose of 5 mg daily -- INR remains subtherapeutic but is trending up. - D/c'ed Heparin drip this morning. (3) Hyperlipidemia: - Continue statin agent as prescribed. (4) Mitral regurgitation: - Severe mitral regurg noted on TTE in November 2017. (5) Hypertension: - Continue Diltiazem and Metoprolol as prescribed. - Borderline low BP this afternoon, will monitor. (6) Electrolyte abnormality: - Phos level 1.8 -- ordered Phosneutral tabs. - Repeat level in the morning. (7) DVT prophylaxis: - Coumadin. Dispo: Med/surg; pt. is medically stable, will sign off. Please call with any questions. Supervising Physician Co-Signing Physician Notes PA Supervision Note: I did not personally see or examine the patient today, but I verified all preston points of TANK Pack's assessment and plan with the following exceptions/additions: None Subjective Pt. had increased pain overnight, required IV narcotics. She is otherwise feeling well. Is having BMs. Review of Systems Review of Systems: All systems reviewed & are unremarkable except as noted in HPI & below Constitutional: no fever, no chills, no fatigue and no weakness Respiratory: no cough, no dyspnea and no dyspnea on exertion Cardiovascular: no chest pain, no palpitations and no edema Gastrointestinal: + abdominal pain; no nausea and no constipation Genitourinary: no difficulty urinating Musculoskeletal: no back pain and no joint pain Physical Exam Physical Exam: General: Resting comfortably HEENT: NC/AT; PERRLA with EOMI; [place] conjunctiva, MMM. No erythema of posterior pharynx Neck: Supple and nontender Cardiac: RRR Lungs: CTA bilaterally Abdomen: Bowel normoactive X 4; Nontender to palpation Extremities: Warm. No edema present Neuro: No focal weakness Skin: No rash Results & Data Vital Signs (Past 12 Hours) Vital Signs Temp Pulse Resp BP BP Pulse Ox 03/07/19 15:05 36.6 C 60 16 99/60 L 92 03/07/19 06:33 36.5 C 66 20 132/77 90 Laboratory Results 03/07/19 03/07/19 03/07/19 Range/Units 06:20 06:20 06:20 WBC 10.86 H (4.8-10.8) K/uL RBC 3.48 L (4.2-5.4) M/uL Hgb 10.4 L (12.0-16.0) g/dL Hct 32.4 L (37-47) % MCV 93.1 (80-100) fL MCH 29.9 (25-34) pg MCHC 32.1 (32-36) g/dL RDW Std Deviation 50.2 H (36.4-46.3) fL RDW Coeff of Zarina 14.7 H (11.5-14.5) % Plt Count 198 (130-400) K/uL MPV 9.6 (7.4-10.4) fL Immature Gran % (Auto) 0.7 % Neut % (Auto) 69.1 % Lymph % (Auto) 20.1 % [place] % (Auto) 9.9 % Eos % (Auto) 0.2 % Baso % (Auto) 0.0 % Immature Gran # (Auto) 0.08 H (0.00-0.02) K/uL Neut # (Auto) 7.50 H (1.4-6.5) K/uL Lymph # (Auto) 2.18 (1.2-3.4) K/uL [place] # (Auto) 1.08 H (0.11-0.59) K/uL Eos # (Auto) 0.02 (0-0.5) K/uL Baso # (Auto) 0.00 (0-0.2) K/uL PT 18.1 H (9.0-12.0) Seconds INR 1.8 H (0.9-1.1) APTT 53.7 H* (21.0-31.0) Seconds PTT Ratio 2.0 Sodium 143 (136-145) mmol/L Potassium 4.1 (3.5-5.1) mmol/L Chloride 110 H (98-107) mmol/L Carbon Dioxide 29 (21-32) mmol/L Anion Gap 4.0 (3-11) BUN 17 (7-18) mg/dl Creatinine 0.91 (0.6-1.2) mg/dl Est Cr Clr Drug Dosing 48.9 ml/min Est GFR ( Amer) 70.0 Est GFR (Non-Af Amer) 60.4 BUN/Creatinine Ratio 18.9 (10-20) Glucose 100 H (70-99) mg/dl Calcium 7.9 L (8.5-10.1) mg/dl Phosphorus 1.8 L (2.5-4.9) mg/dl Magnesium 2.5 H (1.8-2.4) mg/dl Total Bilirubin 0.3 (0.2-1) mg/dl AST 18 (15-37) U/L ALT 16 (12-78) U/L Alkaline Phosphatase 89 (45-117) U/L Total Protein 5.7 L (6.4-8.2) gm/dl Albumin 2.8 L (3.4-5.0) gm/dl Globulin 2.9 (2.5-4.0) gm/dl Albumin/Globulin Ratio 1.0 (0.9-2) PG Care Time/CCT Total # of Minutes Spent Total Time Spent with Patient: Total time spent is greater than 50% in coordination of care (as documented) at patient's floor/unit and/or counseling patient: (1) Atrial fibrillation Atrial fibrillation type: chronic Qualified Code(s): I48.2 - Chronic atrial fibrillation (2) Hypertension Hypertension type: essential hypertension Qualified Code(s): I10 - Essential (primary) hypertension
[2019-03-07] MEDS: WARFARIN SOD 5 MG TAB PO SCH (17:24)
[2019-03-07] MEDS: Heparin Adult STANDARD Wt-Based Dextrose 5% 25,000 units/500 mL IV SCH (17:40)
[2019-03-07] MEDS: ATORVASTATIN 20 MG TAB PO SCH (20:27)
[2019-03-07] MEDS: METOPROLOL SUCC 50MG EXT REL TAB PO SCH (20:27)
[2019-03-08] MEDS: CEFAZOLIN 1,000 MG in SYRINGE 0 ML IV SCH ×3 (06:03→21:29)
[2019-03-08 06:14] LABS: Hematocrit (blood only) 29.6 % (37-47); Hemoglobin 9.7 g/dL (12.0-16.0); Mean Corpuscular Hemoglobin 30.3 pg (25-34); Mean Corpuscular Hgb Conc 32.8 g/dL (32-36); Mean Corpuscular Volume 92.5 fL (80-100); Mean Platelet Volume 9.1 fL (7.4-10.4); Platelet Count 166 K/uL (130-400); RDW Coefficient of Variation 14.6 % (11.5-14.5); White Blood Count 8.29 K/uL (4.8-10.8)
[2019-03-08 06:25] LABS: INR 2.4 (0.9-1.1); Prothrombin Time 23.3 Seconds (9.0-12.0)
[2019-03-08 06:31] LABS: BUN Creatinine Ratio 22.3 (10-20); Calcium 7.7 mg/dl (8.5-10.1); Creatinine Clr Calc Pharmacy 54.3 ml/min; Est GFR (African American) 79.4; Est GFR (Non-African American) 68.5; Potassium 3.9 mmol/L (3.5-5.1)
--- NOTE | 2019-03-08 07:11 | Surgery Progress Note ---
Date of Service March 08, 2019 Assessment & Plan (1) History of incisional hernia repair: vitals stable- H/H has dropped some- may have had some periop bleeding- check H/H later had some blood with bm- ??didn't sound like melena- nurses said drops she appears to be better yesterday- will stop Coumadin cont diet, atbx , mobilization- I don't think imaging will manager of change at this point Results & Data Vital Signs (Past 12 Hours) Vital Signs Temp Pulse Resp BP Pulse Ox 03/07/19 22:55 36.3 C L 73 16 108/56 L 95 03/07/19 20:25 73 109/51 L PG Care Time/CCT Total # of Minutes Spent Total Time Spent with Patient: Total time spent is greater than 50% in coordinat ion of care (as documented) at patient's floor/unit and/or counseling patient:
[2019-03-08] MEDS: DOCUSATE SODIUM/SENNA 50/8.6MG TAB PO SCH ×2 (08:59→21:21)
[2019-03-08] MEDS: MAGNESIUM HYDROXIDE SUSP 30 ML UDC PO SCH ×2 (08:59→21:21)
[2019-03-08] MEDS: dilTIAZem ER 180 MG CAPCR PO SCH (09:01)
[2019-03-08] MEDS ORDERED: PANTOprazole 40 MG TAB PO SCH (10:00)
[2019-03-08] MEDS: HYDROCODONE/ACETAMOPHEN 5/325MG TAB PO PRN ×3 (10:25→21:40)
[2019-03-08] MEDS: SODIUM CHLORIDE 0.9% 1000ML 1,000 ML IV SCH (10:26)
[2019-03-08 12:56] LABS: Hematocrit (blood only) 31.4 % (37-47); Hemoglobin 10.3 g/dL (12.0-16.0)
--- NOTE | 2019-03-08 15:28 | Hospitalist Progress Note ---
Date of Service March 08, 2019 Assessment & Plan (1) Incisional hernia: - S/p lap repair on 03/04, POD#4. - Pain control per primary team. - D/c'ed Coumadin due to concern for lower GI bleed. - Monitor CBC daily - has trended down as expected in setting of kinza-operative bleeding. (2) BRBPR (bright red blood per rectum): - BRBPR noted over last 2 days; pt. denies h/o hemorrhoids, no h/o GI bleeding with most recent colonoscopy ~1 yr ago. - Will continue to monitor; no indication for FOBT. - Monitor CBC q12hr -- most recent level was stable. - D/c'ed home Coumadin per Dr. Rader; will likely need to resume anticoagulation next week if bleeding is resolved. Consider Vit K reversal agent if pt. continues to have rectal bleeding (INR was 2.4) (3) Anemia: - Hgb did trend down, likely related to kinza op bleeding. - Has been stable over last 2 readings; will continue to monitor q12hr due to concern for lower GI bleeding. (4) Atrial fibrillation: - Continue home Diltiazem and Metoprolol as prescribed. - Holding home Coumadin (see above) (5) Hyperlipidemia: - Continue statin agent as prescribed. (6) Mitral regurgitation: - Severe mitral regurg noted on TTE in November 2017. (7) Hypertension: - Continue Diltiazem and Metoprolol as prescribed. (8) Electrolyte abnormality: - Monitor and replace as needed. (9) DVT prophylaxis: - SCDs; holding Coumadin due to lower GI bleeding. Dispo: Med/surg; will continue to follow throughout the weekend. Supervising Physician Co-Signing Physician Notes PA Supervision Note: I did not personally see or examine the patient today, but I verified all preston points of TANK Pack's assessment and plan with the following exceptions/additions: None Subjective Pt. is doing well with exception of bloody BMs over last 2 days. Reports she has had multiple loose BMs but noticed bright red blood in 2 BMs, most recently overnight. H/H has remained stable, expected to drop post op. She denies h/o GI bleeding; most recent colonoscopy was ~1 yr ago. Denies h/o hemorrhoids in past, straining over last few days to have a BM. Denies chest pain, SOB, lightheadedness/dizziness, N/V, loss of appetite. Will continue to monitor H/H closely over next few days. Also d/c'ed Coumadin per Dr. Rader. Review of Systems Review of Systems: All systems reviewed & are unremarkable except as noted in HPI & below Constitutional: no fever, no chills, no fatigue, no weakness and no anorexia Respiratory: no cough, no dyspnea, no dyspnea on exertion and no wheezing Cardiovascular: no chest pain, no palpitations, no lightheadedness, no syncope and no edema Gastrointestinal: + diarrhea/loose stools and + blood in stools; no abdominal pain, no nausea, no vomiting and no constipation Genitourinary: no difficulty urinating Musculoskeletal: no back pain and no joint pain Integumentary: no non-healing lesions Neurologic: no dizziness Allergy / Immunological: no rash Physical Exam Physical Exam: General: Resting comfortably HEENT: NC/AT; PERRLA with EOMI; [place] conjunctiva, MMM. No erythema of posterior pharynx Neck: Supple and nontender Cardiac: RRR Lungs: CTA bilaterally Abdomen: Bowel normoactive X 4; Nontender to palpation Extremities: Warm. No edema present Neuro: No focal weakness Skin: No rash Results & Data Vital Signs (Past 12 Hours) Vital Signs Temp Pulse Pulse Resp BP BP Pulse Ox 03/08/19 09:01 80 124/77 03/08/19 08:00 36.6 C 80 14 117/63 96 Laboratory Results 03/08/19 03/08/19 03/08/19 Range/Units 12:42 07:12 05:57 WBC (4.8-10.8) K/uL RBC (4.2-5.4) M/uL Hgb 10.3 L (12.0-16.0) g/dL Hct 31.4 L (37-47) % MCV (80-100) fL MCH (25-34) pg MCHC (32-36) g/dL RDW Std Deviation (36.4-46.3) fL RDW Coeff of Zarina (11.5-14.5) % Plt Count (130-400) K/uL MPV (7.4-10.4) fL PT (9.0-12.0) Seconds INR (0.9-1.1) Sodium 143 (136-145) mmol/L Potassium 3.9 (3.5-5.1) mmol/L Chloride 110 H (98-107) mmol/L Carbon Dioxide 32 (21-32) mmol/L Anion Gap 1.0 L (3-11) BUN 18 (7-18) mg/dl Creatinine 0.82 (0.6-1.2) mg/dl Est Cr Clr Drug Dosing 54.3 ml/min Est GFR ( Amer) 79.4 Est GFR (Non-Af Amer) 68.5 BUN/Creatinine Ratio 22.3 H (10-20) Glucose 91 (70-99) mg/dl Calcium 7.7 L (8.5-10.1) mg/dl Blood Type O Positive Antibody Screen NEGATIVE 03/08/19 03/08/19 Range/Units 05:57 05:57 WBC 8.29 (4.8-10.8) K/uL RBC 3.20 L (4.2-5.4) M/uL Hgb 9.7 L (12.0-16.0) g/dL Hct 29.6 L (37-47) % MCV 92.5 (80-100) fL MCH 30.3 (25-34) pg MCHC 32.8 (32-36) g/dL RDW Std Deviation 50.0 H (36.4-46.3) fL RDW Coeff of Zarina 14.6 H (11.5-14.5) % Plt Count 166 (130-400) K/uL MPV 9.1 (7.4-10.4) fL PT 23.3 H (9.0-12.0) Seconds INR 2.4 H (0.9-1.1) Sodium (136-145) mmol/L Potassium (3.5-5.1) mmol/L Chloride (98-107) mmol/L Carbon Dioxide (21-32) mmol/L Anion Gap (3-11) BUN (7-18) mg/dl Creatinine (0.6-1.2) mg/dl Est Cr Clr Drug Dosing ml/min Est GFR ( Amer) Est GFR (Non-Af Amer) BUN/Creatinine Ratio (10-20) Glucose (70-99) mg/dl Calcium (8.5-10.1) mg/dl Blood Type Antibody Screen PG Care Time/CCT Total # of Minutes Spent Total Time Spent with Patient: Total time spent is greater than 50% in coordination of care (as documented) at patient's floor/unit and/or counseling patient: (1) Atrial fibrillation Atrial fibrillation type: chronic Qualified Code(s): I48.2 - Chronic atrial fibrillation (2) Hypertension Hypertension type: essential hypertension Qualified Code(s): I10 - Essential (primary) hypertension
[2019-03-08] MEDS ORDERED: WARFARIN SOD 2.5 MG TAB PO SCH (16:00)
[2019-03-08] MEDS: METOPROLOL SUCC 50MG EXT REL TAB PO SCH (21:29)
[2019-03-08] MEDS: ATORVASTATIN 20 MG TAB PO SCH (21:29)
[2019-03-09] MEDS: HYDROCODONE/ACETAMOPHEN 5/325MG TAB PO PRN ×4 (02:39→19:45)
[2019-03-09] MEDS: CEFAZOLIN 1,000 MG in SYRINGE 0 ML IV SCH ×3 (06:14→21:34)
[2019-03-09 06:16] LABS: Hematocrit (blood only) 30.8 % (37-47); Hemoglobin 10.1 g/dL (12.0-16.0); Mean Corpuscular Hemoglobin 30.3 pg (25-34); Mean Corpuscular Hgb Conc 32.8 g/dL (32-36); Mean Corpuscular Volume 92.5 fL (80-100); Mean Platelet Volume 9.3 fL (7.4-10.4); Platelet Count 179 K/uL (130-400); RDW Coefficient of Variation 14.6 % (11.5-14.5); RDW Standard Deviation 49.5 fL (36.4-46.3); Red Blood Count 3.33 M/uL (4.2-5.4); White Blood Count 9.27 K/uL (4.8-10.8)
--- NOTE | 2019-03-09 10:23 | Surgery Progress Note ---
Date of Service March 09, 2019 Assessment & Plan (1) BRBPR (bright red blood per rectum): No bowel movement yet today. H/H stable - would recheck labs and INR in am. If stable tomorrow with no further LGIB, can consider restarting coumadin. (2) History of incisional hernia repair: Doing well. Tolerating diet. Pain well managed. Subjective Pain is well managed with PO pain meds. Tolerating diet. No bowel movement yet today (prior bm's had blood within them). Coumadin being held. Tolerating diet with no nausea or vomiting. Ambulating. Physical Exam Constitutional: WD/WN, vitals as above Respiratory: normal respiratory effort, lungs clear to auscultation Gastrointestinal (Abdomen): Inspection/Auscultation: abdomen normal to inspection, + abdomen distended and normal bowel sounds Percussion/Palpation: + abdomen tender (mild) and abdomen soft incisions clean Neurologic: moves all extremities Psychiatric: A+Ox3, euthymic affect Results & Data Vital Signs (Past 12 Hours) Vital Signs Temp Pulse Pulse Resp BP Pulse Ox 03/09/19 06:19 36.6 C 83 19 118/76 96 03/08/19 23:13 36.7 C 69 20 122/68 92 Laboratory Results H/H 10.1/30.8 from 11.3/31.4 INR not rechecked today - 2.4 yesterday
[2019-03-09] MEDS: DOCUSATE SODIUM/SENNA 50/8.6MG TAB PO SCH ×2 (10:41→21:33)
[2019-03-09] MEDS: MAGNESIUM HYDROXIDE SUSP 30 ML UDC PO SCH ×2 (10:42→21:33)
[2019-03-09] MEDS: dilTIAZem ER 180 MG CAPCR PO SCH (10:42)
[2019-03-09] MEDS ORDERED: HYDROCORTISONE ACETATE 25 MG SUPP PR PRN (12:03)
--- NOTE | 2019-03-09 12:09 | Hospitalist Progress Note ---
Date of Service March 09, 2019 Assessment & Plan (1) Incisional hernia: - S/p lap repair on 03/04, POD#5. - Pain control per primary team. - D/c'ed Coumadin due to concern for lower GI bleed. - Monitor CBC daily - has trended down in setting of kinza-operative bleeding. (2) BRBPR (bright red blood per rectum): - BRBPR noted over last 2 days; pt. denies h/o hemorrhoids, no h/o GI bleeding with most recent colonoscopy ~1 yr ago. - Is likely related to hemorrhoids -- H/H has been stable. Ordered Preparation H suppositories prn. - Monitor CBC daily. - D/c'ed home Coumadin per Dr. Rader; will likely need to resume anticoagulation next week if bleeding is resolved. No indication for Vit K reversal agent. (3) Anemia: - Hgb did trend down, likely related to kinza op bleeding. - Continue to monitor daily. (4) Atrial fibrillation: - Continue home Diltiazem and Metoprolol as prescribed. - Holding home Coumadin (see above) (5) Hyperlipidemia: - Continue statin agent as prescribed. (6) Mitral regurgitation: - Severe mitral regurg noted on TTE in November 2017. (7) Hypertension: - Continue Diltiazem and Metoprolol as prescribed. (8) Electrolyte abnormality: - Monitor and replace as needed. (9) DVT prophylaxis: - SCDs; holding Coumadin due to lower GI bleeding. Dispo: Med/surg; will continue to follow throughout the weekend. Supervising Physician Co-Signing Physician Notes PA Supervision Note: I did not personally see or examine the patient today, but I verified all pre[place] points of TANK Pack's assessment and plan with the following exceptions/additions: None Subjective Pt is doing well. She has not had further BRBPR with exception of noting gross red blood on toilet paper after using restroom. Denies lightheadedness, N/V, chest pain, SOB. Bleeding was likely related to hemorrhoids -- will order Preparation H suppositories for internal hemorrhoidal relief. Review of Systems Review of Systems: All systems reviewed & are unremarkable except as noted in HPI & below Constitutional: no fever, no chills, no fatigue, no weakness and no anorexia Respiratory: no cough, no dyspnea, no dyspnea on exertion and no wheezing Cardiovascular: no chest pain, no palpitations and no edema Gastrointestinal: + abdominal pain and + diarrhea/loose stools; no nausea, no vomiting, no constipation and no blood in stools Genitourinary: no difficulty urinating Musculoskeletal: no back pain and no joint pain Integumentary: no non-healing lesions Physical Exam Physical Exam: General: Resting comfortably HEENT: NC/AT; PERRLA with EOMI; [place] conjunctiva, MMM. No erythema of posterior pharynx Neck: Supple and nontender Cardiac: RRR Lungs: CTA bilaterally Abdomen: Bowel normoactive X 4; Nontender to palpation Extremities: Warm. No edema present Neuro: No focal weakness Skin: No rash Results & Data Vital Signs (Past 12 Hours) Vital Signs Temp Pulse Resp BP Pulse Ox 03/09/19 06:19 36.6 C 83 19 118/76 96 Laboratory Results 03/09/19 03/08/19 Range/Units 05:55 12:42 WBC 9.27 (4.8-10.8) K/uL RBC 3.33 L (4.2-5.4) M/uL Hgb 10.1 L 10.3 L (12.0-16.0) g/dL Hct 30.8 L 31.4 L (37-47) % MCV 92.5 (80-100) fL MCH 30.3 (25-34) pg MCHC 32.8 (32-36) g/dL RDW Std Deviation 49.5 H (36.4-46.3) fL RDW Coeff of Zarina 14.6 H (11.5-14.5) % Plt Count 179 (130-400) K/uL MPV 9.3 (7.4-10.4) fL PG Care Time/CCT Total # of Minutes Spent Total Time Spent with Patient: Total time spent is greater than 50% in coordination of care (as documented) at patient's floor/unit and/or counseling patient: (1) Atrial fibrillation Atrial fibrillation type: chronic Qualified Code(s): I48.2 - Chronic atrial fibrillation (2) Hypertension Hypertension type: essential hypertension Qualified Code(s): I10 - Essential (primary) hypertension
[2019-03-09 15:58] VITALS: TEMP 98.2
[2019-03-09] MEDS: ATORVASTATIN 20 MG TAB PO SCH (21:34)
[2019-03-09] MEDS: METOPROLOL SUCC 50MG EXT REL TAB PO SCH (21:34)
[2019-03-10 05:52] LABS: Hematocrit (blood only) 31.1 % (37-47); Hemoglobin 9.9 g/dL (12.0-16.0); Mean Corpuscular Hemoglobin 29.4 pg (25-34); Mean Corpuscular Hgb Conc 31.8 g/dL (32-36); Mean Corpuscular Volume 92.3 fL (80-100); Mean Platelet Volume 9.6 fL (7.4-10.4); Platelet Count 193 K/uL (130-400); RDW Coefficient of Variation 14.6 % (11.5-14.5); RDW Standard Deviation 48.2 fL (36.4-46.3); Red Blood Count 3.37 M/uL (4.2-5.4)
[2019-03-10 06:09] LABS: Prothrombin Time 19.7 Seconds (9.0-12.0)
[2019-03-10 06:27] LABS: BUN Creatinine Ratio 14.9 (10-20); Calcium 8.4 mg/dl (8.5-10.1); Est GFR (African American) 91.4; Est GFR (Non-African American) 78.9; Potassium 4.1 mmol/L (3.5-5.1)
[2019-03-10] MEDS: CEFAZOLIN 1,000 MG in SYRINGE 0 ML IV SCH ×2 (06:30→06:58)
[2019-03-10] MEDS: HYDROCODONE/ACETAMOPHEN 5/325MG TAB PO PRN (07:32)
[2019-03-10 07:48] VITALS: BP 117/62; PULSE 88; O2SAT 95
[2019-03-10] MEDS: DOCUSATE SODIUM/SENNA 50/8.6MG TAB PO SCH (08:11)
[2019-03-10] MEDS: dilTIAZem ER 180 MG CAPCR PO SCH (08:11)
[2019-03-10] MEDS: MAGNESIUM HYDROXIDE SUSP 30 ML UDC PO SCH (08:11)
--- NOTE | 2019-03-10 09:38 | Surgery Progress Note ---
Date of Service March 10, 2019 Assessment & Plan (1) BRBPR (bright red blood per rectum): Believed to be secondary to hemorrhoids. H/H stable. INR 2.0. OK to resume coumadin. (2) History of incisional hernia repair: Doing well. POD#6 - pain controlled with pain meds. Stable for discharge. Subjective Feeling well. Sitting at the side of bed. Tolerating diet. Having bowel movement daily - had some bright red blood attributed to hemorrhoids. H/H stable. No complaints. Physical Exam Constitutional: WD/WN, vitals as above Respiratory: normal respiratory effort, lungs clear to auscultation Cardiovascular: RRR, no murmur, no edema Gastrointestinal (Abdomen): Inspection/Auscultation: abdomen normal to inspection and normal bowel sounds; abdomen not distended Percussion/Palpation: + abdomen tender (mild at surgical site) and abdomen soft; no hernia incisions clean and dry Neurologic: moves all extremities Psychiatric: A+Ox3, euthymic affect Results & Data Vital Signs (Past 12 Hours) Vital Signs Temp Pulse Resp BP Pulse Ox 03/10/19 07:44 36.8 C 88 16 117/62 95 03/09/19 22:48 36.8 C 80 16 118/62 94 Laboratory Results Hgb 9.9 (was 10.1) INR 2.0
--- NOTE | 2019-03-10 15:42 | Hospitalist Progress Note ---
Date of Service March 10, 2019 Assessment & Plan (1) Incisional hernia: - S/p lap repair on 03/04, POD#6. - Pain control per primary team. - D/c'ed Coumadin due to concern for GI bleed, will resume at discharge as bleeding was likely related to hemorrhoids. - Monitor CBC daily - has trended down in setting of kinza-operative bleeding but remained stable. No indication for outpt labs with exception of INR levels. (2) BRBPR (bright red blood per rectum): - BRBPR noted over last 72 hours; most recent colonoscopy ~1 yr ago. - Is likely related to hemorrhoids -- H/H has been stable. Advised pt. to use OTC hemorrhoid cream. - Will resume home Coumadin at discharge. (3) Anemia: - Hgb did trend down, likely related to kinza op bleeding. (4) Atrial fibrillation: - Continue home Diltiazem and Metoprolol as prescribed. - Holding home Coumadin (see above), will resume at discharge. (5) Hyperlipidemia: - Continue statin agent as prescribed. (6) Mitral regurgitation: - Severe mitral regurg noted on TTE in November 2017. -needs monitoring with Cardio as outpt (7) Hypertension: - Continue Diltiazem and Metoprolol as prescribed. (8) Electrolyte abnormality: - Monitor and replace as needed. (9) DVT prophylaxis: - SCDs; holding Coumadin due to lower GI bleeding, can resume at discharge. Dispo: Med/surg; discharged to home, will sign off. Supervising Physician Co-Signing Physician Notes PA Supervision Note: I did not personally see or examine the patient today, but I verified all preston points of TANK Pack's assessment and plan with the following exceptions/additions: None Subjective Pt. is doing well - rectal bleeding improved, only occurs with BMS and is bright red, c/w hemorrhoids. Advised her to use OTC hemorrhoid cream at home. She will be discharged to home this afternoon. Review of Systems Review of Systems: All systems reviewed & are unremarkable except as noted in HPI & below Constitutional: no fever, no chills, no fatigue and no weakness Respiratory: no cough, no dyspnea, no dyspnea on exertion and no wheezing Cardiovascular: no chest pain, no palpitations and no edema Gastrointestinal: + abdominal pain, + diarrhea/loose stools and + blood in stools; no nausea and no vomiting Genitourinary: no difficulty urinating Musculoskeletal: no back pain and no joint pain Integumentary: no non-healing lesions Physical Exam Physical Exam: General: Resting comfortably HEENT: NC/AT; PERRLA with EOMI; [place] conjunctiva, MMM. No erythema of posterior pharynx Neck: Supple and nontender Cardiac: RRR Lungs: CTA bilaterally Abdomen: Bowel normoactive X 4; Nontender to palpation Extremities: Warm. No edema present Neuro: No focal weakness Skin: No rash Results & Data Vital Signs (Past 12 Hours) Vital Signs Temp Pulse Resp BP Pulse Ox 03/10/19 10:38 36.8 C 88 16 117/62 95 03/10/19 07:44 36.8 C 88 16 117/62 95 Laboratory Results 03/10/19 03/10/19 03/10/19 Range/Units 05:17 05:17 05:17 WBC 8.90 (4.8-10.8) K/uL RBC 3.37 L (4.2-5.4) M/uL Hgb 9.9 L (12.0-16.0) g/dL Hct 31.1 L (37-47) % MCV 92.3 (80-100) fL MCH 29.4 (25-34) pg MCHC 31.8 L (32-36) g/dL RDW Std Deviation 48.2 H (36.4-46.3) fL RDW Coeff of Zarina 14.6 H (11.5-14.5) % Plt Count 193 (130-400) K/uL MPV 9.6 (7.4-10.4) fL PT 19.7 H (9.0-12.0) Seconds INR 2.0 H (0.9-1.1) Sodium 140 (136-145) mmol/L Potassium 4.1 (3.5-5.1) mmol/L Chloride 103 (98-107) mmol/L Carbon Dioxide 32 (21-32) mmol/L Anion Gap 5.0 (3-11) BUN 11 (7-18) mg/dl Creatinine 0.73 (0.6-1.2) mg/dl Est Cr Clr Drug Dosing 61.0 ml/min Est GFR ( Amer) 91.4 Est GFR (Non-Af Amer) 78.9 BUN/Creatinine Ratio 14.9 (10-20) Glucose 105 H (70-99) mg/dl Calcium 8.4 L (8.5-10.1) mg/dl PG Care Time/CCT Total # of Minutes Spent Total Time Spent with Patient: Total time spent is greater than 50% in coordination of care (as documented) at patient's floor/unit and/or counseling patient: (1) Atrial fibrillation Atrial fibrillation type: chronic Qualified Code(s): I48.2 - Chronic atrial fibrillation (2) Hypertension Hypertension type: essential hypertension Qualified Code(s): I10 - Essential (primary) hypertension
--- NOTE | 2019-03-13 07:45 | Discharge Summary ---
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 Discharge Exam awake, alert Constitutional well developed and well nourished; no acute distress Cardiovascular Rate/Rhythm: regular rate Gastrointestinal (Abdomen) Inspection/Auscultation: + abdominal surgical incision (c/d/i); abdomen not distended Percussion/Palpation: + abdomen tender (mildly at surgical site) Discharge Data Allergies Allergy/AdvReac Type Severity Reaction Status Date / Time blue dye Allergy Intermediate hives Verified 03/04/19 05:24 dabigatran etexilate Allergy Intermediate hives Verified 03/04/19 05:24 diphenhydramine Allergy Intermediate HIVES Verified 03/04/19 05:24 amoxicillin Allergy Mild hives Verified 03/04/19 05:24 lisinopril Allergy Mild hives Verified 03/04/19 05:24 red dye Allergy Mild hives Verified 03/04/19 05:24 yellow dye Allergy Mild hives Verified 03/04/19 05:24 Consultations 02/26/19 15:31 Consult Hospitalist Routine 03/04/19 16:35 Consult Case Management - Discharge Planning Routine Procedures Performed Operation Date: 03/04/19 07:00 Actual Procedures p Laparoscopic Incisional Hernia Repair with mesh - Albert Rader MD, [facility] Hospital Course (1) History of incisional hernia repair: This is a 79y F who underwent a laparoscopic incisional hernia repair with lysis of adhesions with Dr. Rader on 03/04/19. The patient tolerated the procedure well, see operative note for full details. The hospitalist team was consulted and followed the patient throughout her admission. Post operatively the patient's madrigal was removed and she was able to void spontaneously. She was started on a heparin drip POD#1 as a bridge to coumadin for her history of atrial fibrillation. Heparin drip stopped once INR was within therapeutic range. Her diet was advanced to regular as tolerated and she started having meaningful bowel function. Pain managed with oral medication and IV meds as needed. On POD#4 (03/08) the patient reported having some blood in her stool. Coumadin was held and her H/H trended. Her Hbg was monitored q12h and remained stable. She did not require any blood transfusions. Her vital signs remained stable. Her BM's were evaluated thereafter for concern for lower GI bleed which ultimately improved. Blood per rectum attributed to be secondary to hemorrhoids and the patient was instructed to use OTC hemorrhoid cream. On 03/10 the patient was deemed stable for discharge to home. The hospitalist team recommended patient resume Coumadin upon discharge and have her INR's trended. Her surgical incisions were clean, dry, intact. Pain remained well controlled and she continued to tolerate a regular diet. Patient was instructed to follow up in the surgical clinic for close follow up within 1-2 weeks as well as with her PCP. Total Time Total Time Spent Total Time Spent (In Minutes): 15 Discharge Plan Discharge Items Patient Disposition: Home - Self-Care Reason For Visit: Incisional Hernia Discharge Diagnosis: incisional hernia Discharge Goals: Decrease discomfort, Improve disease control and Improve function Activity: As commented below Activity Comment: light activity for 4 weeks Lifting: No more than 25 pounds Bathing Comment: may shower Exercise Comment: wait 4 weeks Driving/Machine Use Comment: wait 2 weeks Non-emergency contact: Primary Care Provider and Surgeon Call non-emergency contact if: your pain is not controlled, your temperature is above 101 and your wound has increased drainage Follow-up/Referrals: Denise Garner MD [Primary Care Provider] - Diet: Regular Addtl Provider Instructions: SPECIAL CARE INSTRUCTIONS: * Cover incisions and change daily for comfort/drainage. * Resume Coumadin Thur 03/14 * May use ibuprofen for pain as tolerated. * Expect some swelling and bruising. Call your doctor if: * Temperature above 101 degrees * Pain not relieved by pain medicine ordered * There is increased drainage or redness from any incision * You have any unanswered questions or concerns [phone]. FOLLOW UP VISIT: If not already scheduled, please call the office for a follow-up visit. OFFICE PHONE NUMBER: Dr. Rader Office for end of this week- some suture removal Prescriptions: New cephalexin [Keflex] 500 mg capsule 500 mg PO TID Qty: 15 RF: 0 hydrocodone-acetaminophen [[place]] 5-325 mg tablet 1 - 2 tab PO Q6H PRN (Reason: pain) Qty: 30 RF: 0 Continued omega 0-pad-wzv-fish oil [Fish Oil] 1,000 mg (120 mg-180 mg) Capsule 1 cap PO QAM Qty: 0 RF: 0 atorvastatin 20 mg Tablet 20 mg PO HS Qty: 0 RF: 0 cholecalciferol (vitamin D3) [Vitamin D3] 2,000 unit Capsule 4,000 unit PO QAM RF: 0 No Action diltiazem HCl 180 mg capsule,extended release 24 hr 180 mg PO DAILY Qty: 90 RF: 3 metoprolol succinate 25 mg tablet extended release 24 hr 25 mg PO DAILY Qty: 90 RF: 3 warfarin 2.5 mg tablet 2.5 mg PO DAILY Qty: 90 RF: 5 Stand-Alone Forms: [facility]/Other Patient Handouts: Surgery Prevent DVT After Discharge Orders: Discharge Order (Routine); Ordered 03/10/19 Ordered By: Maureen Don Admission Data Admit Date/Time: 03/04/19 09:01 Attending Provider: Albert Rader Admit Provider: Albert Rader Primary Care Provider: Denise Garner V. Other Providers: Albert Rader ; Cintia Farfan Service: Medical Other Interventions: Discharge Summary Assessment (RN) Last Done: 03/10/19 10:38 DC Date/Time DO NOT enter until pt leaves facility: 03/10/19 11:54
== END 2019-03-10 11:54 | disposition home or self-care (01) | DRG 336 ==
LOC: ASU 05:13 → 2S 09:01 → SUATTDRO 09:01 → 3N 03-06 09:00
DX: N99.4 Postprocedural pelvic peritoneal adhesions; K43.2 Incisional hernia without obstruction or gangrene; K57.92 Diverticulitis of intestine, part unspecified, without perforation or abscess without bleeding; Z79.01 Long term (current) use of anticoagulants

== ENCOUNTER 2023-08-23 19:02 | Inpatient (IN) ==
[2023-08-23 19:49] LABS: Basophils # (auto) 0.03 K/uL (0.00-0.20); Basophils % (auto) 0.3 %; Eosinophils # (auto) 0.05 K/uL (0.00-0.50); Eosinophils % (auto) 0.4 %; Hematocrit (blood only) 43.1 % (37.0-47.0); Hemoglobin 13.9 g/dl (12.0-16.0); Immature Granulocytes # (auto) 0.07 K/uL (0.01-0.20); Immature Granulocytes % (auto) 0.6 %; Lymphocytes # (auto) 1.32 K/uL (1.20-3.40); Lymphocytes % (auto) 11.6 %; Mean Corpuscular Hemoglobin 29.9 pg (25.0-34.0); Mean Corpuscular Hgb Conc 32.3 g/dL (32.0-36.0); Mean Corpuscular Volume 92.7 fL (80.0-100.0); Mean Platelet Volume 9.5 fL (9.4-12.4); Monocytes # (auto) 0.49 K/uL (0.11-0.59); Monocytes % (auto) 4.3 %; Neutrophils # (auto) 9.44 K/uL (1.40-6.50); Neutrophils % (auto) 82.8 %; Platelet Count 217 K/uL (130-400); RDW Coefficient of Variation 13.2 % (11.5-14.5); RDW Standard Deviation 44.7 fL (36.4-46.3); Red Blood Count 4.65 M/uL (4.20-5.40)
[2023-08-23 20:05] LABS: Alanine Aminotransferase 9 U/L (7-52); Albumin Globulin Ratio 1.4 (0.9-2); Albumin Level 4.2 gm/dl (3.4-5.0); Alkaline Phosphatase 86 U/L (34-104); Anion Gap 6 (3-11); Aspartate Aminotransferase 16 U/L (13-39); Bilirubin,Total 0.6 mg/dl (0.2-1.0); Blood Urea Nitrogen 21 mg/dl (6-23); Calcium 10.3 mg/dl (8.6-10.3); Carbon Dioxide 32 mmol/L (21-32); Chloride 103 mmol/L (98-107); Est GFR (Non-African American) 64.7 ml/min; Glucose 160 mg/dl (70-99(Fasting)); Lipase 20 U/L (11-82); Potassium 4.1 mmol/L (3.5-5.1); Sodium 141 mmol/L (136-145); Total Protein 7.2 gm/dl (6.0-8.3)
[2023-08-23] MEDS: OPTIRAY 320 500ml IV ONE (20:41)
[2023-08-23] MEDS: SODIUM CHLORIDE 0.9% 1,000 ML IV SCH (20:46)
[2023-08-23] MEDS: FAMOTIDINE 20MG IV PUSH 20 MG/5 ML SYR IV STA (20:46)
--- NOTE | 2023-08-23 21:29 | CT Scan Report ---
Exam(s): CT ABDOMEN + PELVIS With Contrast IV Amt: 90 cc opti 320 EXAM: CT Abdomen and Pelvis With Intravenous Contrast CLINICAL HISTORY: Reason for exam: central abd pain, n/v. TECHNIQUE: Axial computed tomography images of the abdomen and pelvis with intravenous contrast. Automated exposure control was utilized for the study. A dose lowering technique was utilized adhering to the principles of ALARA. CONTRAST: Patient received 90 cc opti 320 of IV contrast COMPARISON: No relevant prior studies available. FINDINGS: Lung bases: Unremarkable. No mass. No consolidation. Heart: Cardiomegaly. ABDOMEN: Liver: Unremarkable. No mass. Gallbladder and bile ducts: Unremarkable. No calcified stones. No ductal dilation. Pancreas: Unremarkable. No mass. No ductal dilation. Spleen: Unremarkable. No splenomegaly. Adrenals: Unremarkable. No mass. Kidneys and ureters: No hydronephrosis or delayed nephrogram. Renal cysts measure up to 2.8 cm. Stomach and bowel: Dilated small bowel measuring up to 2.7 cm, concerning for bowel obstruction. The area of transition is in the LEFT abdomen adjacent to the surgical luisa. Obstruction is likely secondary to postoperative adhesions. Diverticulosis, without acute diverticulitis. No small bowel obstruction. No free intraperitoneal air. PELVIS: Appendix: No findings to suggest acute appendicitis. Bladder: Decompressed urinary bladder. Reproductive: Unremarkable as visualized. ABDOMEN and PELVIS: Intraperitoneal space: Unremarkable. No free air. No significant fluid collection. Bones/joints: Degenerative changes of the spine. No acute fracture. No dislocation. Soft tissues: Unremarkable. Vasculature: Atherosclerotic changes of the aorta. No abdominal aortic aneurysm. Lymph nodes: Unremarkable. No enlarged lymph nodes. IMPRESSION: Dilated small bowel measuring up to 2.7 cm, concerning for bowel obstruction. The area of transition is in the LEFT abdomen adjacent to the surgical luisa. Obstruction is likely secondary to postoperative adhesions. Electronically signed by: Edward Stephen MD 08/23/23 21:28 PM
--- NOTE | 2023-08-23 21:43 | Emergency Department Note ---
Impression & Plan Abdominal pain, Nausea & vomiting, Bowel obstruction ED Provider Note ED Provider Note NAME: MAGALYS EM AGE:83 SEX: Female : 1940 ARRIVES VIA: Private vehicle INFORMANT: Patient ED PROVIDER(s): Kristin Hernandez DO CHIEF COMPLAINT: Abdominal pain HPI: This is an 83-year-old female who presents emergency department due to concern for abdominal pain, nausea and vomiting. Patient states symptoms began around 1230 this afternoon with the pain in her central mid abdomen. She states she had discomfort with intermittent sharp or spasms of pain. No radiation into the back. She states she was nauseated and ultimately did try to make herself vomit after several hours of symptoms in the hopes that it would make her feel better. She denies any recent new medications, travel, sick contacts, or dietary change. Patient states she felt well when she got up this morning and was able to eat and drink normally this morning. No recent change in bowel movements, no black or bloody stools. No recent change in urine or urinary habits. She denies any coming fevers or chills. No prior GI history. Patient did have a prior hysterectomy. Patient is anticoagulated due to history of atrial fibrillation. PAST MEDICAL HISTORY:See Below PAST SURGICAL HISTORY:See Below FAMILY HISTORY:See Below SOCIAL HISTORY:See Below HOME MEDICATIONS:See Below ALLERGIES:See Below VITALS:See Below PHYSICAL EXAMINATION: GENERAL: alert, well appearing, well nourished, no distress, non-toxic EYE EXAM: normal conjunctiva, PERRL and EOM's grossly intact OROPHARYNX: no exudate, no erythema, lips, buccal mucosa, and tongue normal and mucous membranes are moist NECK: supple, no nuchal rigidity, no adenopathy, non-tender LUNGS: Clear to auscultation. Normal chest wall mechanics, no w/r/r HEART: no murmurs, S1 normal and S2 normal ABDOMEN: abdomen soft, mild discomfort with palpation in epigastric region, normo-active bowel sounds, no masses, no rebound or guarding. Dull to percussion BACK: Back is symmetrical on inspection and there is no deformity, no midline tenderness, no CVA tenderness. SKIN: no rashes, petechiae, orbruising UPPER EXTREMITIES: upper extremities are grossly normal. FROM, nml pulses b/l. LOWER EXTREMITIES: No pitting edema. FROM, nml pulses b/l. NEURO EXAM: Normal sensorium, cranial nerves II-XII grossly intact, normal speech, no facial droop,nogross weakness of arms, no gross weakness of legs. Gross sensation intact. No ataxia. Vital Signs: reviewed and remarkable Differential Diagnosis: GERD, PUD, viral syndrome, pancreatitis, colitis, bowel obstruction, UTI, medication ADR, ACS, dissection, as well as others were can MEDICAL DECISION MAKING: This is an 83-year-old female presents emergency room due to concern for abdominal pain, nausea and vomiting. Patient was afebrile and vital signs stable. By the time of my evaluation patient denied any nausea or abdominal pain and states she was feeling improved. Labs drawn and sent, IV established, EKG performed at bedside and interpreted by me and patient monitored on telemetry. Patient started on IV fluids, and after discussion at bedside, we opted to perform additional CT imaging due to unclear etiology of her symptoms. CT revealed small bowel obstruction. Patient has had prior hysterectomy. We discussed all results at bedside. Case discussed with on-call general surgical PA who evaluated the patient at bedside additionally. Case discussed with Dr. Carbone, hospitalist team, for additional evaluation. Patient had no recurrent vomiting while present in the emergency department, did have mild abdominal discomfort. She was given IV Tylenol and additional IV fluids. Consultation(s): 2149: Discussed with Isra Groves PA-C, with gen surg. 2209: Discussed with Dr. Carbone, [place] hospitalist team. ER Treatment Provided: See below Diagnostics Interpreted By Me: -ECG: Atrial fibrillation at a rate of 98, leftward axis, prolonged intervals noted with interventricular conduction delay, nonspecific ST/T wave changes noted; no significant change compared to October 30, 2022 -Cardiac Monitoring: An order was placed for continuous cardiac monitoring. The monitor shows a rate of 98 with a.fib rhythm. -Laboratory studies: As stated above and show below. 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 Hue ELI Surgical History Hx of right cataract extraction Status post laparoscopic hernia repair History of incisional hernia repair (03/04/19) Laparoscopic Incisional Hernia Repair with mesh Dr. Rader 03/04/1919 Grade 1 view, elective glidescope #3, ETT 7. History of colostomy reversal laparoscopic reversal of colostomy: 04/02/18: MAC#3, ETT 7.0 at [facility] History of colostomy History of repair of rectocele S/P colon resection Hx of colonoscopy 03/06/18 Hx of appendectomy Hx of hysterectomy Hx of exploratory laparotomy WITH BOWEL RESECTION AND COLOSTOMY (11/2017) Grade 1 view, MAC 3, ETT 7.5. Hx of eye surgery LEFT Family History Brother Prostate cancer Coronary heart disease FHx: cancer Father Coronary heart disease Myocardial infarction Other FHx: heart disease Denies family history of Ovarian cancer Breast cancer Lung cancer Colorectal cancer Stroke Social History Smoking Status: Never smoker Second Hand Exposure: No; Do You Dip or Chew Tobacco: No; Hx Alcohol Use: No Hx Substance Use: No Preferred Language: Australian Communication Ability: Effective Visual Impairment: No Limitations Hearing Ability: Normal Physical Anthropologist Required: No Beliefs That Will Affect Care: None marital status: / Current Living Situation: Other Current Living Situation Comment: with son current occupational status: employed Other Information That Helps Us Care for You: No Feels Safe at Home: Yes Safety Concerns: Feels Safe At This Time Childhood Exposure to Second-Hand Smoke: No Dental Care, Regularly: Yes Physical Activity Frequency: Daily Seatbelt Use: always Sunscreen Use: Yes Assistive Devices: Cane and Glasses Allergies Allergies Allergy/AdvReac Type Severity Reaction Status Date / Time blue dye Allergy Intermediate hives Verified 08/23/23 22:02 dabigatran etexilate Allergy Intermediate hives Verified 08/23/23 22:02 diphenhydramine Allergy Intermediate HIVES Verified 08/23/23 22:02 amoxicillin Allergy Mild hives Verified 08/23/23 22:02 lisinopril Allergy Mild hives Verified 08/23/23 22:02 red dye Allergy Mild hives Verified 08/23/23 22:02 yellow dye Allergy Mild hives Verified 08/23/23 22:02 Home Meds Home Medications Medication Instructions Recorded Confirmed omega 3-cxw-lqz-fish oil 1,000 mg 1 cap PO QPM #0 caps 12/02/17 08/23/23 (120 mg-180 mg) capsule (Fish Oil) cholecalciferol (vitamin D3) 50 2,000 unit PO QAM 11/25/21 08/23/23 mcg (2,000 unit) capsule (Vitamin D3) Previous Rx's Medication Instructions Recorded tramadol 50 mg tablet 25 - 50 mg (0.5 - 1 x 50 mg) PO 05/02/23 DAILY PRN pain #20 tabs apixaban 5 mg tablet (Eliquis) 5 mg PO BID #180 tabs 05/09/23 metoprolol succinate 100 mg 100 mg PO QPM #90 tabs 05/09/23 tablet,extended release 24 hr atorvastatin 20 mg tablet 20 mg PO HS #90 tabs 05/25/23 Results & Data (ED) Vital Signs Vital Signs - 24 hr 08/23/23 19:15 08/23/23 20:03 08/23/23 20:03 Temperature 36.4 C L Temperature Source Temporal Artery Scan Pulse Rate 102 H 101 H 101 H Pulse Rate from SpO2 Sensor 101 H Respiratory Rate 18 18 Respiratory Effort / Characteristics Non-Labored Spontaneous Blood Pressure 135/90 Blood Pressure Mean 105 Pulse Oximetry 94 94 Oxygen Delivery Method Room Air Sepsis Recent Fever Within 48 Hours No Sepsis New/Unexplained Change in Mental Status No Sepsis Action Taken by Nursing No Action Required 08/23/23 20:10 08/23/23 20:20 08/23/23 20:43 Temperature Temperature Source Pulse Rate 96 H 97 H 104 H Pulse Rate from SpO2 Sensor 102 H 91 H 97 H Respiratory Rate 16 28 H 12 Respiratory Effort / Characteristics Blood Pressure Blood Pressure Mean Pulse Oximetry 94 95 Oxygen Delivery Method Sepsis Recent Fever Within 48 Hours Sepsis New/Unexplained Change in Mental Status Sepsis Action Taken by Nursing 08/23/23 20:50 08/23/23 21:00 08/23/23 21:00 Temperature Temperature Source Pulse Rate 103 H 96 H Pulse Rate from SpO2 Sensor 99 H 99 H Respiratory Rate 17 18 Respiratory Effort / Characteristics Blood Pressure 131/85 Blood Pressure Mean 106 Pulse Oximetry 96 Oxygen Delivery Method Sepsis Recent Fever Within 48 Hours Sepsis New/Unexplained Change in Mental Status Sepsis Action Taken by Nursing 08/23/23 21:10 08/23/23 21:20 08/23/23 21:30 Temperature Temperature Source Pulse Rate 106 H 93 H Pulse Rate from SpO2 Sensor 102 H 99 H Respiratory Rate 16 21 Respiratory Effort / Characteristics Blood Pressure 142/97 H Blood Pressure Mean 128 Pulse Oximetry 95 94 Oxygen Delivery Method Sepsis Recent Fever Within 48 Hours Sepsis New/Unexplained Change in Mental Status Sepsis Action Taken by Nursing 08/23/23 21:30 08/23/23 21:40 Temperature Temperature Source Pulse Rate 94 H 91 H Pulse Rate from SpO2 Sensor 99 H 98 H Respiratory Rate 18 22 Respiratory Effort / Characteristics Blood Pressure Blood Pressure Mean Pulse Oximetry 96 96 Oxygen Delivery Method Sepsis Recent Fever Within 48 Hours Sepsis New/Unexplained Change in Mental Status Sepsis Action Taken by Nursing Laboratory Data 08/23/23 19:33 08/23/23 19:33 Lab Results 08/23/23 08/23/23 Range/Units 19:33 20:45 WBC 11.40 H (4.8-10.8) K/ul RBC 4.65 (4.20-5.40) M/uL Hgb 13.9 (12.0-16.0) g/dl Hct 43.1 (37.0-47.0) % MCV 92.7 (80.0-100.0) fL MCH 29.9 (25.0-34.0) pg MCHC 32.3 (32.0-36.0) g/dL RDW Std Deviation 44.7 (36.4-46.3) fL RDW Coeff of Zarina 13.2 (11.5-14.5) % Plt Count 217 (130-400) K/uL MPV 9.5 (9.4-12.4) fL Immature Gran % (Auto) 0.6 % Neut % (Auto) 82.8 % Lymph % (Auto) 11.6 % [place] % (Auto) 4.3 % Eos % (Auto) 0.4 % Baso % (Auto) 0.3 % Neut # (Auto) 9.44 H (1.40-6.50) K/uL Lymph # (Auto) 1.32 (1.20-3.40) K/uL [place] # (Auto) 0.49 (0.11-0.59) K/uL Eos # (Auto) 0.05 (0.00-0.50) K/uL Baso # (Auto) 0.03 (0.00-0.20) K/uL Immature Gran # (Auto) 0.07 (0.01-0.20) K/uL Sodium 141 (136-145) mmol/L Potassium 4.1 (3.5-5.1) mmol/L Chloride 103 (98-107) mmol/L Carbon Dioxide 32 (21-32) mmol/L Anion Gap 6 (3-11) BUN 21 (6-23) mg/dl Creatinine 0.84 (0.6-1.2) mg/dl Est Cr Clr Drug Dosing Not Reportable Est GFR ( Amer) 75.0 ml/min Est GFR (Non-Af Amer) 64.7 ml/min BUN/Creatinine Ratio 25.0 H (10-20) Glucose 160 H (70-99(Fasting)) mg/dl Lactate 1.2 (0.4-2.0) mmol/L Calcium 10.3 (8.6-10.3) mg/dl Phosphorus 3.1 (2.5-4.9) mg/dl Magnesium 2.1 (1.7-2.4) mg/dl Total Bilirubin 0.6 (0.2-1.0) mg/dl AST 16 (13-39) U/L ALT 9 (7-52) U/L Alkaline Phosphatase 86 (34-104) U/L Total Protein 7.2 (6.0-8.3) gm/dl Albumin 4.2 (3.4-5.0) gm/dl Globulin 3.0 (2.5-4.0) gm/dl Albumin/Globulin Ratio 1.4 (0.9-2) Lipase 20 (11-82) U/L Administered Medications Lactated Ringer's (Lr) 1,000 mls @ 100 mls/hr IV .Q10H CHAI Stop: 08/24/23 20:11 Last Admin: 08/24/23 00:44 Dose: 100 mls/hr Documented By: LASHELL Discontinued Medications Famotidine (Pepcid 20mg Iv Push) 20 mg in 5 mls @ 2.5 mls/min IV NOW STA Stop: 08/23/23 20:20 Last Admin: 08/23/23 20:46 Dose: 2.5 mls/min Documented By: LESA Sodium Chloride (Nss) 1,000 mls @ 200 mls/hr IV .Q5H CHAI Stop: 09/22/23 20:29 Last Admin: 08/23/23 20:46 Dose: 200 mls/hr Documented By: ELSA Acetaminophen (Ofirmev) 1,000 mg in 100 mls @ 400 mls/hr IV NOW STA Stop: 08/23/23 22:36 Last Infusion: 08/24/23 00:14 Dose: Infused Documented By: Admin: 08/23/23 22:43 Dose: 400 mls/hr Documented By: ELSA Ioversol (Optiray 320 500ml) 90 ml IV ONCE ONE Stop: 08/23/23 20:42 Last Admin: 08/23/23 20:41 Dose: 90 ml Documented By: Dapper Imaging Data Radiologist's Impression: Abdomen/Pelvis CT 08/23/23 20:19 Exam(s): CT ABDOMEN + PELVIS With Contrast IV Amt: 90 cc opti 320 EXAM: CT Abdomen and Pelvis With Intravenous Contrast CLINICAL HISTORY: Reason for exam: central abd pain, n/v. TECHNIQUE: Axial computed tomography images of the abdomen and pelvis with intravenous contrast. Automated exposure control was utilized for the study. A dose lowering technique was utilized adhering to the principles of ALARA. CONTRAST: Patient received 90 cc opti 320 of IV contrast COMPARISON: No relevant prior studies available. FINDINGS: Lung bases: Unremarkable. No mass. No consolidation. Heart: Cardiomegaly. ABDOMEN: Liver: Unremarkable. No mass. Gallbladder and bile ducts: Unremarkable. No calcified stones. No ductal dilation. Pancreas: Unremarkable. No mass. No ductal dilation. Spleen: Unremarkable. No splenomegaly. Adrenals: Unremarkable. No mass. Kidneys and ureters: No hydronephrosis or delayed nephrogram. Renal cysts measure up to 2.8 cm. Stomach and bowel: Dilated small bowel measuring up to 2.7 cm, concerning for bowel obstruction. The area of transition is in the LEFT abdomen adjacent to the surgical luisa. Obstruction is likely secondary to postoperative adhesions. Diverticulosis, without acute diverticulitis. No small bowel obstruction. No free intraperitoneal air. PELVIS: Appendix: No findings to suggest acute appendicitis. Bladder: Decompressed urinary bladder. Reproductive: Unremarkable as visualized. ABDOMEN and PELVIS: Intraperitoneal space: Unremarkable. No free air. No significant fluid collection. Bones/joints: Degenerative changes of the spine. No acute fracture. No dislocation. Soft tissues: Unremarkable. Vasculature: Atherosclerotic changes of the aorta. No abdominal aortic aneurysm. Lymph nodes: Unremarkable. No enlarged lymph nodes. IMPRESSION: Dilated small bowel measuring up to 2.7 cm, concerning for bowel obstruction. The area of transition is in the LEFT abdomen adjacent to the surgical luisa. Obstruction is likely secondary to postoperative adhesions. Electronically signed by: Edward Stephen MD 08/23/23 21:28 PM Discharge Plan Visit Data Chief Complaint: Abdominal Pain Stated Complaint: UPPER ABD PAIN ED Provider: Kristin Hernandez Discharge Problem: Abdominal pain, Nausea & vomiting, Bowel obstruction Patient Disposition: Admitted As Inpatient Discharge Instructions Interventions: ED Discharge Assessment Last Done: 08/23/23 22:55
--- NOTE | 2023-08-23 22:15 | Surgery Consultation ---
Date of Consultation August 23, 2023 Assessment & Plan (1) Bowel obstruction: I discussed with the treating physician in the emergency department the patient is being admitted on the hospital service. From a surgical perspective we recommend proceeding as follows: Implement n.p.o. status Provide analgesics Provide antiemetics Provide IV fluid for hydration Follow serial labs Follow serial abdominal exam I did discuss utilization of an NG tube with the patient at the present time she wishes to avoid this modality. As the patient does not have peritoneal signs or markedly distended abdomen and she has not had any emesis in several hours I feel we can attempt to treat this condition without the use of an NG tube. I did discuss with the patient if she has deterioration of her abdominal exam, worsening pain, or further emesis an NG tube may need to be utilized and she expressed her understanding Hold anticoagulants (Eliquis) if clinically feasible At the present time the patient is normotensive with only slight tachycardia and slight leukocytosis. She does not have an elevated lactic acid level, fever, or acute kidney injury. Therefore do not feel an emergent operation is needed, particular since the patient is nontoxic-appearing Additional recommendations will be forthcoming based on her clinical course as it unfolds Supervising Physician Co-Signing Physician Notes I personally saw and evaluated the patient with Dajuan Groves PA-C and agree with the assessment and plan. CT images and results personally viewed and interpreted by myself, some mild dilation seen of the small bowel Admit to medicine Keep NPO/IVF No plans for surgical intervention at this time History of Present Illness Reason for Consultation: Bowel obstruction History of Present Illness This is an 83-year-old female who presented the emergency department secondary to abdominal pain. Patient notes that she had onset of abdominal pain at approximately 12:30 PM today shortly after eating her noon meal. She notes that the pain is primarily in the upper left part of her abdomen and is nonradiating. She had nausea and self-induced some vomiting with slight relief of her pain. She does not report any other mitigating factors. She notes that she did have a loose bowel movement this morning but since her pain began she has not passed any flatus or had any further bowel movements. She denies any fevers, shakes, or chills. She notes that she ate solid food at approximately 12:30 PM today and had an Stella-[place] at approximately 5:30 PM today which was her last oral intake. She notes that she has had multiple abdominal surgeries in the past (partial colectomy with colostomy secondary to diverticulitis, colostomy reversal, hernia repair, hysterectomy, rectocele repair, appendectomy). She has never had a small bowel obstruction before. She further adds that she has a history of atrial fibrillation for which she takes Eliquis and she did take her dose of Eliquis this morning Since arrival to hospital she has had labs and imaging which independent reviewed. CBC reveals white blood cell count was slightly elevated 11.4. Hemoglobin and hematocrit along with the platelet count are normal. Chemistry profile showed sodium and potassium as well as the BUN and creatinine were normal. There is no elevation of her LFTs or lipase. Lactic acid level is nonelevated. A CT scan of the abdomen pelvis was obtained and this study showed patient had dilated small bowel which was concerning for a bowel obstruction. The interpreting radiologist felt the transition zone was located in the left side of the abdomen adjacent to the visualized surgical luisa. No intraperi toneal free air was noted. At the time of my interview the patient was resting comfortably in bed and she was in no distress. Allergies Allergy/AdvReac Type Severity Reaction Status Date / Time blue dye Allergy Intermediate hives Verified 08/23/23 22:02 dabigatran etexilate Allergy Intermediate hives Verified 08/23/23 22:02 diphenhydramine Allergy Intermediate HIVES Verified 08/23/23 22:02 amoxicillin Allergy Mild hives Verified 08/23/23 22:02 lisinopril Allergy Mild hives Verified 08/23/23 22:02 red dye Allergy Mild hives Verified 08/23/23 22:02 yellow dye Allergy Mild hives Verified 08/23/23 22:02 Home Medications Medication Instructions Recorded Confirmed Type omega 9-okx-rvg-fish oil 1,000 mg 1 cap PO QPM #0 caps 12/02/17 08/23/23 History (120 mg-180 mg) capsule (Fish Oil) cholecalciferol (vitamin D3) 50 2,000 unit PO QAM 11/25/21 08/23/23 History mcg (2,000 unit) capsule (Vitamin D3) tramadol 50 mg tablet 25 - 50 mg (0.5 - 1 x 50 mg) PO 05/02/23 08/23/23 Rx DAILY PRN pain #20 tabs apixaban 5 mg tablet (Eliquis) 5 mg PO BID #180 tabs 05/09/23 08/23/23 Rx metoprolol succinate 100 mg 100 mg PO QPM #90 tabs 05/09/23 08/23/23 Rx tablet,extended release 24 hr atorvastatin 20 mg tablet 20 mg PO HS #90 tabs 05/25/23 08/23/23 Rx Patient History Medical History Bowel obstruction Pulmonary hypertension mild per 10/2021 echo report, RVSP 30-40mmHg Left ureteral calculus Anemia Hyperlipidemia Cardiomyopathy EF 50-55% 10/2021 echo Hx of intestinal obstruction 11/2017 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 Hue ELI Surgical History Hx of right cataract extraction Status post laparoscopic hernia repair History of incisional hernia repair (03/04/19) Laparoscopic Incisional Hernia Repair with mesh Dr. Rader 03/04/1919 Grade 1 view, elective glidescope #3, ETT 7. History of colostomy reversal laparoscopic reversal of colostomy: 04/02/18: MAC#3, ETT 7.0 at [facility] History of colostomy History of repair of rectocele S/P colon resection Hx of colonoscopy 03/06/18 Hx of appendectomy Hx of hysterectomy Hx of exploratory laparotomy WITH BOWEL RESECTION AND COLOSTOMY (11/2017) Grade 1 view, MAC 3, ETT 7.5. Hx of eye surgery LEFT Family History Brother Prostate cancer Coronary heart disease FHx: cancer Father Coronary heart disease Myocardial infarction Other FHx: heart disease Denies family history of Ovarian cancer Breast cancer Lung cancer Colorectal cancer Stroke Social History Smoking Status: Never smoker Second Hand Exposure: No; Do You Dip or Chew Tobacco: No; Hx Alcohol Use: No Hx Substance Use: No Preferred Language: Togolese Communication Ability: Effective Visual Impairment: No Limitations Hearing Ability: Normal President Ceo & Founder Required: No Beliefs That Will Affect Care: None marital status: / Current Living Situation: Other Current Living Situation Comment: with son current occupational status: employed Other Information That Helps Us Care for You: No Feels Safe at Home: Yes Safety Concerns: Feels Safe At This Time Childhood Exposure to Second-Hand Smoke: No Dental Care, Regularly: Yes Physical Activity Frequency: Daily Seatbelt Use: always Sunscreen Use: Yes Assistive Devices: Cane Review of Systems Constitutional: no fever and no chills Ear, Nose, Mouth, Throat: no ear pain Respiratory: no cough and no dyspnea Cardiovascular: no chest pain Gastrointestinal: as per Subjective / HPI Genitourinary: no dysuria Musculoskeletal: no back pain Integumentary: no rash Neurologic: no localized weakness Physical Exam Constitutional: WD/WN, vitals as above Eyes: no conjunctival abnormality ENMT: Ears: no hearing impairment and no external ear abnormality Mouth: no oropharynx abnormality Neck: trachea midline Respiratory: normal respiratory effort; no respiratory distress and no labored breathing Cardiovascular: Rate/Rhythm: regular rate and regular rhythm Gastrointestinal (Abdomen): At the time of my exam abdomen had mild distention. It was not tympanic to percussion or rigid. Bowel sounds are hypoactive. Patient did have pain with palpation to the left of the umbilicus. There is no rebound tenderness or guarding. Patient did have a well-healed midline incision from previous surgeries. She also had a well-healed incision from previous colostomy Musculoskeletal: No calf tenderness Skin: no rashes Neurologic: moves all extremities Psychiatric: A+Ox3, euthymic affect Results & Data Vital Signs (Past 12 Hours) Vital Signs Temp Pulse Resp BP Pulse Ox O2 Del Method 08/23/23 20:03 101 H 08/23/23 19:15 36.4 C L 102 H 18 135/90 94 Room Air PG Care Time/CCT Total # of Minutes Spent Total Time Spent with Patient: Total time spent is greater than 50% in coordination of care (as documented) at patient's floor/unit and/or counseling patient: Coding Level of Care Code 80435 INT INP/OBS CARE 3/75MIN Diagnoses Bowel obstruction K56.609
--- NOTE | 2023-08-23 22:28 | History & Physical Report ---
Date of Service August 23, 2023 Assessment & Plan (1) Bowel obstruction: Plan: 83yo female presenting with one day of abdominal pain and nausea. Found to have SBO. Patient with multiple abdominal surgeries in the past. Presently pain is well controlled. Minimal nausea. -Admit to medical -Maintain NPO status -Gentle IVF with LR at 100mL/hr x 2L -Electrolyte repletion -Zofran PRN nausea -Morphine PRN pain -Appreciate General Surgery assistance (2) Atrial fibrillation: Plan: Chronic. HR=96 at present -Continue Metoprolol 100mg po qPM -Continue Apixaban anticoagulation F/E/N- LR at 100mL/hr x 2L, electrolytes WNL, NPO for now Ppx - Continue Apixaban Code - Full Dispo - Admit to Medical History of Present Illness Chief Complaint: abdominal pain Primary Care Provider: Denise Garner MD Samira Rojas is a pleasant 83yo female with histoyr of HTN, HLP, AF on Apixaban anticoagulation presenting with abdominal pain. Patient felt well this morning. She went to an appointment in the morning. Around 12:30 she developed mid-abdominal bandlike discomfort - sharp and stabbing in nature. Her pain lasted until around 18:00. She had a little bit of nausea and made herself vomit with little improvement in her pain. Her pain did resolve for a short time but is returning now. She is not passing flatus. Last BM was this AM - normal, non-bloody. No report of fever, chills, abdominal distention. She has had multiple bowel surgeries in the past - prior hernia repair, appendectomy and hysterectomy, partial colon resection for diverticulitis s/p ostomy placement with subsequent reversal. No prior bowel obstructions. In the ER she is afebrile, HD stable Workup as below suggestive of SBO. She was evaluated by General Surgery in the ER. ER Course: Pepcid 20mg IV NSS 1L Tylenol 1gm IV Allergies Allergy/AdvReac Type Severity Reaction Status Date / Time blue dye Allergy Intermediate hives Verified 08/23/23 22:02 dabigatran etexilate Allergy Intermediate hives Verified 08/23/23 22:02 diphenhydramine Allergy Intermediate HIVES Verified 08/23/23 22:02 amoxicillin Allergy Mild hives Verified 08/23/23 22:02 lisinopril Allergy Mild hives Verified 08/23/23 22:02 red dye Allergy Mild hives Verified 08/23/23 22:02 yellow dye Allergy Mild hives Verified 08/23/23 22:02 Home Medications Medication Instructions Recorded Confirmed Type omega 1-fwu-zke-fish oil 1,000 mg 1 cap PO QPM #0 caps 12/02/17 08/23/23 History (120 mg-180 mg) capsule (Fish Oil) cholecalciferol (vitamin D3) 50 2,000 unit PO QAM 11/25/21 08/23/23 History mcg (2,000 unit) capsule (Vitamin D3) tramadol 50 mg tablet 25 - 50 mg (0.5 - 1 x 50 mg) PO 05/02/23 08/23/23 Rx DAILY PRN pain #20 tabs apixaban 5 mg tablet (Eliquis) 5 mg PO BID #180 tabs 05/09/23 08/23/23 Rx metoprolol succinate 100 mg 100 mg PO QPM #90 tabs 05/09/23 08/23/23 Rx tablet,extended release 24 hr atorvastatin 20 mg tablet 20 mg PO HS #90 tabs 05/25/23 08/23/23 Rx Past Med/Surg History Medical History Bowel obstruction Pulmonary hypertension mild per 10/2021 echo report, RVSP 30-40mmHg Left ureteral calculus Anemia Hyperlipidemia Cardiomyopathy EF 50-55% 10/2021 echo Hx of intestinal obstruction 11/2017 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 Hue ELI Surgical History Hx of right cataract extraction Status post laparoscopic hernia repair History of incisional hernia repair (03/04/19) Laparoscopic Incisional Hernia Repair with mesh Dr. Rader 03/04/1919 Grade 1 view, elective glidescope #3, ETT 7. History of colostomy reversal laparoscopic reversal of colostomy: 04/02/18: MAC#3, ETT 7.0 at [facility] History of colostomy History of repair of rectocele S/P colon resection Hx of colonoscopy 03/06/18 Hx of appendectomy Hx of hysterectomy Hx of exploratory laparotomy WITH BOWEL RESECTION AND COLOSTOMY (11/2017) Grade 1 view, MAC 3, ETT 7.5. Hx of eye surgery LEFT Family History Brother Prostate cancer Coronary heart disease FHx: cancer Father Coronary heart disease Myocardial infarction Other FHx: heart disease Denies family history of Ovarian cancer Breast cancer Lung cancer Colorectal cancer Stroke Social History Smoking Status: Never smoker Second Hand Exposure: No; Do You Dip or Chew Tobacco: No; Hx Alcohol Use: No Hx Substance Use: No Preferred Language: [place] Communication Ability: Effective Visual Impairment: No Limitations Hearing Ability: Normal Assistant Finance Manager Required: No Beliefs That Will Affect Care: None marital status: / Current Living Situation: Other Current Living Situation Comment: with son current occupational status: employed Other Information That Helps Us Care for You: No Feels Safe at Home: Yes Safety Concerns: Feels Safe At This Time Childhood Exposure to Second-Hand Smoke: No Dental Care, Regularly: Yes Physical Activity Frequency: Daily Seatbelt Use: always Sunscreen Use: Yes Assistive Devices: Cane and Glasses Review of Systems Review of Systems: All systems reviewed & are unremarkable except as noted in HPI & below Physical Exam Physical Exam: General: patient resting comfortably, NAD, non-toxic in appearance, AA&O x 4 Skin: warm, dry, intact, no rashes or lesions HEENT: NC/AT, PERRL, EOMI, anicteric sclera, conjunctiva without injection, external ear normal to inspection and nontender, nares patent, moist mucus membranes, dentition intact, no oropharyngeal lesions, neck supple, trachea midline, no LAD, no thyromegaly, no JVD Heart: +S1/S2, irregularly irregular, no m/r/g Lungs: equal air entry bilaterally, no rales/rhonchi/wheezes Abd: markedly diminished bowel sounds, soft, non-distended, tender to palpation without rebound or guarding, no masses/organomegaly/ascites Ext: warm, 2+ pulses in UE/LE bilaterally, no clubbing/cyanosis or edema Neuro: nonfocal, patient AA&O x 4, speech intact, no facial droop, moving all extremities on command with equal strength 5/5 Results & Data Results & Data Vital Signs (Past 12 Hours) Vital Signs Temp Pulse Resp BP Pulse Ox O2 Del Method 08/23/23 20:03 101 H 08/23/23 19:15 36.4 C L 102 H 18 135/90 94 Room Air Laboratory Results Laboratory Results WBC 11.40 K/ul (4.8-10.8) H 08/23/23 19:33 RBC 4.65 M/uL (4.20-5.40) 08/23/23 19:33 Hgb 13.9 g/dl (12.0-16.0) 08/23/23 19:33 Hct 43.1 % (37.0-47.0) 08/23/23 19:33 MCV 92.7 fL (80.0-100.0) 08/23/23 19:33 MCH 29.9 pg (25.0-34.0) 08/23/23 19: MCHC 32.3 g/dL (32.0-36.0) 08/23/23 19:33 RDW Std Deviation 44.7 fL (36.4-46.3) 08/23/23 19:33 RDW Coeff of Zarina 13.2 % (11.5-14.5) 08/23/23 19: Plt Count 217 K/uL (130-400) 08/23/23 19:33 MPV 9.5 fL (9.4-12.4) 08/23/23 19:33 Immature Gran % (Auto) 0.6 % 08/23/23 19:33 Neut % (Auto) 82.8 % 08/23/23 19:33 Lymph % (Auto) 11.6 % 08/23/23 19:33 [place] % (Auto) 4.3 % 08/23/23 19:33 Eos % (Auto) 0.4 % 08/23/23 19:33 Baso % (Auto) 0.3 % 08/23/23 19:33 Neut # (Auto) 9.44 K/uL (1.40-6.50) H 08/23/23 19:33 Lymph # (Auto) 1.32 K/uL (1.20-3.40) 08/23/23 19:33 [place] # (Auto) 0.49 K/uL (0.11-0.59) 08/23/23 19:33 Eos # (Auto) 0.05 K/uL (0.00-0.50) 08/23/23 19:33 Baso # (Auto) 0.03 K/uL (0.00-0.20) 08/23/23 19:33 Immature Gran # (Auto) 0.07 K/uL (0.01-0.20) 08/23/23 19:33 Sodium 141 mmol/L (136-145) 08/23/23 19:33 Potassium 4.1 mmol/L (3.5-5.1) 08/23/23: Chloride 103 mmol/L (98-107) 08/23/23: Carbon Dioxide 32 mmol/L (21-32) 08/23/23:33 Anion Gap 6 (3-11) 08/23/23 19:33 BUN 21 mg/dl (6-23) 08/23/23: Creatinine 0.84 mg/dl (0.6-1.2) 08/23/23 19: Est Cr Clr Drug Dosing Not Reportable 08/23/23 19: Est GFR ( Amer) 75.0 ml/min 08/23/23 19: Est GFR (Non-Af Amer) 64.7 ml/min 08/23/23 19: BUN/Creatinine Ratio 25.0 (10-20) H 08/23/23 19:33 Glucose 160 mg/dl (70-99(Fasting)) H 08/23/23 19: Lactate 1.2 mmol/L (0.4-2.0) 08/23/23 20:45 Calcium 10.3 mg/dl (8.6-10.3) 08/23/23 19: Phosphorus 3.1 mg/dl (2.5-4.9) 08/23/23 19: Magnesium 2.1 mg/dl (1.7-2.4) 08/23/23 19:33 Total Bilirubin 0.6 mg/dl (0.2-1.0) 08/23/23 19:33 AST 16 U/L (13-39) 08/23/23 19: ALT 9 U/L (7-52) 08/23/23 19:33 Alkaline Phosphatase 86 U/L (34-104) 08/23/23 19:33 Total Protein 7.2 gm/dl (6.0-8.3) 08/23/23 19:33 Albumin 4.2 gm/dl (3.4-5.0) 08/23/23 19:33 Globulin 3.0 gm/dl (2.5-4.0) 08/23/23 19:33 Albumin/Globulin Ratio 1.4 (0.9-2) 08/23/23 19:33 Lipase 20 U/L (11-82) 08/23/23 19:33 Urine Color Yellow 08/24/23 00:50 Urine Appearance Clear (Clear) 08/24/23 00:50 Urine pH 6.0 (4.5-7.5) 08/24/23 00:50 Ur Specific [place] > 1.045 (1.000-1.030) H 08/24/23 00:50 Urine Protein Negative (Negative) 08/24/23 00:50 Urine Glucose (UA) Negative (Negative) 08/24/23 00:50 Urine Ketones Negative (Negative) 08/24/23 00:50 Urine Blood 2+ (Negative) H 08/24/23 00:50 Urine Nitrite Negative (Negative) 08/24/23 00:50 Urine Bilirubin Negative (Negative) 08/24/23 00:50 Urine Urobilinogen Negative (Negative) 08/24/23 00:50 Ur Leukocyte Esterase Negative (Negative) 08/24/23 00:50 Urine WBC (Auto) 10-30 /hpf (0-5) H 08/24/23 00:50 Urine RBC (Auto) 10-30 /hpf (0-4) H 08/24/23 00:50 U Hyaline Cast (Auto) 1-5 /lpf (0-5) 08/24/23 00:50 U Epithel Cells (Auto) >30 /lpf (0-5) H 08/24/23 00:50 Urine Bacteria (Auto) Negative (Negative) 08/24/23 00:50 Impressions Abdomen/Pelvis CT 08/23/23 20:19 Exam(s): CT ABDOMEN + PELVIS With Contrast IV Amt: 90 cc opti 320 EXAM: CT Abdomen and Pelvis With Intravenous Contrast CLINICAL HISTORY: Reason for exam: central abd pain, n/v. TECHNIQUE: Axial computed tomography images of the abdomen and pelvis with intravenous contrast. Automated exposure control was utilized for the study. A dose lowering technique was utilized adhering to the principles of ALARA. CONTRAST: Patient received 90 cc opti 320 of IV contrast COMPARISON: No relevant prior studies available. FINDINGS: Lung bases: Unremarkable. No mass. No consolidation. Heart: Cardiomegaly. ABDOMEN: Liver: Unremarkable. No mass. Gallbladder and bile ducts: Unremarkable. No calcified stones. No ductal dilation. Pancreas: Unremarkable. No mass. No ductal dilation. Spleen: Unremarkable. No splenomegaly. Adrenals: Unremarkable. No mass. Kidneys and ureters: No hydronephrosis or delayed nephrogram. Renal cysts measure up to 2.8 cm. Stomach and bowel: Dilated small bowel measuring up to 2.7 cm, concerning for bowel obstruction. The area of transition is in the LEFT abdomen adjacent to the surgical luisa. Obstruction is likely secondary to postoperative adhesions. Diverticulosis, without acute diverticulitis. No small bowel obstruction. No free intraperitoneal air. PELVIS: Appendix: No findings to suggest acute appendicitis. Bladder: Decompressed urinary bladder. Reproductive: Unremarkable as visualized. ABDOMEN and PELVIS: Intraperitoneal space: Unremarkable. No free air. No significant fluid collection. Bones/joints: Degenerative changes of the spine. No acute fracture. No dislocation. Soft tissues: Unremarkable. Vasculature: Atherosclerotic changes of the aorta. No abdominal aortic aneurysm. Lymph nodes: Unremarkable. No enlarged lymph nodes. IMPRESSION: Dilated small bowel measuring up to 2.7 cm, concerning for bowel obstruction. The area of transition is in the LEFT abdomen adjacent to the surgical luisa. Obstruction is likely secondary to postoperative adhesions. Electronically signed by: Edward Stephen MD 08/23/23 21:28 PM ECG Additional Comments: EKG with AF at 98bpm, left axis deviation, KVW=200, YOl=880. no acute ischemic changes PG Care Time/CCT Total # of Minutes Spent Total Time Spent with Patient: Total time spent is greater than 50% in coordination of care (as documented) at patient's floor/unit and/or counseling patient: Coding Level of Care Code 62735 INT INP/OBS CARE 2/55MIN Diagnoses Bowel obstruction K56.609 Chronic atrial fibrillation I48.2 Atrial fibrillation type: chronic (2) Atrial fibrillation Atrial fibrillation type: chronic Qualified Code(s): I48.2 - Chronic atrial fibrillation
[2023-08-23] MEDS: ACETAMINOPHEN 1,000 MG/100 ML VIAL IV STA (22:43)
[2023-08-24] MEDS ORDERED: ONDANSETRON INJ 2 MG/ML 2 ML VIAL IV PRN (00:12)
[2023-08-24] MEDS ORDERED: MoRPHine SULFATE 4 MG/ML 1 ML CARP\\VIAL IV PRN (00:12)
[2023-08-24] MEDS ORDERED: MoRPHine SULFATE 2 MG/ML CARP IV PRN (00:12)
[2023-08-24 00:32] LABS: Magnesium 2.1 mg/dl (1.7-2.4); Phosphorus 3.1 mg/dl (2.5-4.9)
[2023-08-24] MEDS: LACTATED RINGER'S 1,000 ML IV SCH (00:44)
[2023-08-24 01:33] LABS: Appearance Urine Clear (Clear); Bacteria Urine Automated Negative (Negative); Bilirubin Urine Negative (Negative); Blood Urine 2+ (Negative); Color Urine Yellow; Epithelial Cell Urine Auto >30 /lpf (0-5); Glucose Urine UA Negative (Negative); Ketones Urine Negative (Negative); Leukocyte Esterase Urine Negative (Negative); Nitrite Urine Negative (Negative); Protein Urine Negative (Negative); Specific Gravity Urine > 1.045 (1.000-1.030); Urobilinogen Urine Negative (Negative)
--- NOTE | 2023-08-24 07:40 | Hospitalist Progress Note ---
Date of Service August 24, 2023 Assessment & Plan (1) Abdominal pain: (2) Nausea & vomiting: (3) Bowel obstruction: Plan 1) Bowel obstruction: 83yo female presenting with one day of abdominal pain and nausea. Found to have SBO. Patient with multiple abdominal surgeries in the past. Presently pain is well controlled. Minimal nausea. -transitioned to clears, then full liquids, will advance diet as tolerated -Gentle IVF with LR at 100mL/hr x 2L, -Electrolyte repletion, -Zofran PRN nausea, -Morphine PRN pain -General Surgery consulted: No plans for operative intervention as pt's bowel function already returning (2) Atrial fibrillation: Chronic. HR, 96 at admission -Continue Metoprolol 100mg, PO qPM -Continue Apixaban anticoagulation, 5 mg, PO, BID F/E/N- LR at 100mL/hr x 2L, electrolytes WNL, NPO for now Ppx - Continue Apixaban Code - Full Dispo - Admit to Medical Admission and Anticipated Discharge Date Admission Date: August 23, 2023 Supervising Physician Co-Signing Physician Notes I personally examined the patient and verified all preston points of history and exam, discussed case, and agree with decision making with Dr Nargis Cueva feels better. Had diarrhea, had flatus. Would like to go home. Has not eaten anything yet. Son arrivesI update him to the best my ability and to his satisfaction as well. Vitals noted, in general she is awake and alert pleasant no distress. HEENT normocephalic atraumatic mucous membranes moist. Abdomen is soft mild left-sided tenderness without guarding rebound or rigidity. Skin shows no rashes no pallor or icterus. Neuro without focal deficits. Small bowel obstructionalmost certainly due to postoperative adhesionsappears to be resolving already. Clear liquid diet, advance as tolerated. Anticoagulated otherwise as above Subjective Chief Complaint: abdominal pain Primary Care Provider: Denise Garner MD Samira Rojas is a pleasant 83yo female with PMHx of HTN, HLP, AF on Apixaban anticoagulation presenting with abdominal pain. Patient felt well yesterday morning. She went to an appointment in the morning. Around 12:30 she developed mid-abdominal bandlike discomfort - sharp and stabbing in nature. Her pain lasted until around 18:00. She had a little bit of nausea and made herself vomit with little improvement in her pain. Her pain resolved for a short time but returned. She was not passing flatus. Last BM was this AM - normal, non-bloody. No report of fever, chills, abdominal distention. She has had multiple bowel surgeries in the past - prior hernia repair, appendectomy and hysterectomy, partial colon resection for diverticulitis s/p ostomy placement with subsequent reversal. No prior bowel obstructions. In the ER she was afebrile, HD stable. Workup as below suggestive of SBO. She was evaluated by General Surgery in the ER. ER Course: Pepcid 20mg IV, NSS 1L, Tylenol 1gm IV This morning patient feels better than the previous night with 4 episodes of diarrhea overnight but no nausea or vomiting. Early this afternoon patient endorsed passing of gas, loose stools but no recurrence of the nausea or vomiting. Patient is not experiencing any other Sx besides her abdominal discomfort at the moment. Review of Systems Constitutional: no fever and no chills Respiratory: no cough, no chest congestion and no dyspnea Cardiovascular: no chest pain and no palpitations Gastrointestinal: + abdominal pain (more residual pain dean und reversal colostomy site than elsewhere) and + diarrhea/loose stools; no nausea and no vomiting Neurologic: no loss of sensation, no tingling and no numbness Physical Exam Constitutional: WD/WN, vitals as above Respiratory: normal respiratory effort, lungs clear to auscultation Cardiovascular: Rate/Rhythm: regular rate Heart Sounds: no gallop and no murmur Gastrointestinal (Abdomen): Inspection/Auscultation: + abdominal surgical scar (where patient had their reverse colostomy) Percussion/Palpation: + abdomen tender (left abdominal area) Psychiatric: A+Ox3, euthymic affect Results & Data Results & Data Vital Signs (Past 12 Hours) Vital Signs Temp Pulse Pulse Resp BP BP Pulse Ox 08/24/23 00:18 08/24/23 00:18 36.4 C L 96 H 18 129/68 96 08/23/23 22:55 08/23/23 22:45 91 H 18 96 08/23/23 22:45 140/69 08/23/23 22:42 94 H 17 08/23/23 21:40 91 H 22 96 08/23/23 21:30 94 H 18 96 02/14/24 21:30 142/97 H 08/23/23 21:20 93 H 21 94 08/23/23 21:10 106 H 16 95 08/23/23 21:00 131/85 08/23/23 21:00 96 H 18 96 08/23/23 20:50 103 H 17 08/23/23 20:43 104 H 12 08/23/23 20:20 97 H 28 H 95 08/23/23 20:10 96 H 16 94 08/23/23 20:03 101 H 18 94 08/23/23 20:03 101 H O2 Del Method 08/24/23 00:18 Room Air 08/24/23 00:18 Room Air 08/23/23 22:55 Room Air 08/23/23 22:45 08/23/23 22:45 08/23/23 22:42 08/23/23 21:40 08/23/23 21:30 08/23/23 21:30 08/23/23 21:20 08/23/23 21:10 08/23/23 21:00 08/23/23 21:00 08/23/23 20:50 08/23/23 20:43 08/23/23 20:20 08/23/23 20:10 08/23/23 20:03 08/23/23 20:03 (3) Bowel obstruction Intestinal obstruction type: obstruction due to adhesions
[2023-08-24] MEDS: APIXABAN 5 MG TABLET PO SCH (08:22)
[2023-08-24 08:38] LABS: Hematocrit (blood only) 38.7 % (37.0-47.0); Hemoglobin 12.8 g/dl (12.0-16.0); Mean Corpuscular Hemoglobin 30.6 pg (25.0-34.0); Mean Corpuscular Hgb Conc 33.1 g/dL (32.0-36.0); Mean Corpuscular Volume 92.6 fL (80.0-100.0); Mean Platelet Volume 9.6 fL (9.4-12.4); Platelet Count 193 K/uL (130-400); RDW Coefficient of Variation 13.2 % (11.5-14.5); RDW Standard Deviation 44.5 fL (36.4-46.3); Red Blood Count 4.18 M/uL (4.20-5.40); White Blood Count 8.31 K/ul (4.8-10.8)
[2023-08-24 08:54] LABS: BUN Creatinine Ratio 23.6 (10-20); Calcium 9.3 mg/dl (8.6-10.3); Creatinine Clr Calc Pharmacy 52.2 ml/min; Est GFR (African American) 90.4 ml/min; Potassium 3.8 mmol/L (3.5-5.1)
--- OUTSIDE RECORDS SUMMARY | 2023-08-24 09:37 | External Medical Summary | Continuity of Care Document ---
Author Name Unknown Organization [facility] [address] [place], [place] [address] Address [address] [place] [phone] Care Team Providers Care Sewing Machine Assembler Name Role Phone Denise Chang V Primary Care Ph ysician [phone] Encounter [facility] [place] [id number] Date(s): 08/08/23 - 08/08/23 [facility] [address] [facility] [address] [facility] [address] Sports Medicine [address] [place] [address] Encounter Diagnosis Arthritis of right knee(Discharge Diagnosis) - 08/08/23 Discharge Disposition: Home or Self Care Attending Physician: MILO Mansfield Jennifer R Allergies, Adverse Reactions, Alerts Substance Reaction Severity Status amoxicillin hives Active lisinopril rash Active red dye hives Active Pradaxa hives Active Benadryl rash Active Assessment and Plan Extracted from: Title:Clinical Document Author:MILO Mansfield, Ramakrishna Gutierrez Date:08/08/23 ORTHOPAEDICS OUTPATIENT NOTE Name: MAGALYS EM Patient Number: [id number] : 1940 Date of Service: 08/08/2023 Chief Complaint: follow up right knee; s/p euflexxa injections HPI: Patient is here today for follow-up of her right knee status post Euflexxa injections. She had the injections 2 months ago and states that the pain is improved. She says that she continues to have some burning pain in the front of her knee but the pain that she had on the medial side of her knee is much improved. She is pleased with her results and would like to continue the series for as long as possible. OBJECTIVE Vitals: Last Updated 08/08/23 11:23 Date Temp BP Location Pulse RR SpO2 Pain 08/08/23 1 05/23/23 0 05/16/23 5 Physical Exam Exam of her right knee: She has a trace to small effusion. No erythema or warmth. No ecchymosis. Range of motion is 0 to 110 degrees comfortably. Positive crepitation with flexion extension. Medial joint line tenderness with palpation. Strength is 5/5. No distal edema. Ambulates with a slight antalgic gait with the assistance of a cane. ASSESSMENT: DJD right knee, status post viscosupplementation series PLAN: She can continue activities as tolerated. Continue use of her cane for long distances. We will authorize for another series again in approximately 4 months of her right knee. Ice and elevate as needed. We elected not to do any type of aspiration injection today even with her small effusion. She can do [id number] anti-inflammatories or Tylenol. Call with any worsening problems, questions or concerns. All questions were answered. This chart was completed utilizing Text [employer] voice recognition software. Grammatical errors, random word insertions, pronoun errors, and in complete sentences are an occasional consequence of the system. Any questions or concerns about the content, text, or information contained within the body of this dictation should be addressed directly to the provider for clarification. Medications atorvastatin 20 mg oral tablet Start: 09/06/17 9:22:00, 1 tab, PO, Daily Start Date: 09/06/17 Status: Ordered Eliquis 5 mg oral tablet Start: 06/02/20 14:53:00 EST, 1 tab, PO, bid Start Date: 06/02/20 Status: Ordered EPA Fish Oil Start: 09/06/17 9:22:00, 1000IU Start Date: 09/06/17 Status: Ordered Euflexxa 10 mg/mL intra-articular solution Start: 03/24/23 12:52:00 EDT, 20 mg =, intra-articular, q7days, Disp# 6 mL, Refills: 0, 3 syringes for R knee. Please ship to physician's office: [id number] [place] [address], Note to Pharmacy: R KNEE DJD [id number], Pharmacy: [facility] Start Date: 03/24/23 Stop Date: 04/14/23 Status: Ordered Medrol Dosepak 4 mg oral tablet Start: 02/13/23 10:46:00 EDT, See Instructions, Disp# 21 tab, Take as directed on package labeling for 6 days., Pharmacy: [facility]/pharmacy #[id number] Start Date: 02/13/23 Stop Date: 02/19/23 Status: Ordered Metoprolol Succinate ER 100 mg oral tablet, extended release Start: 06/02/20 14:54:00 EST, 1 tab, PO, Daily Start Date: 06/02/20 Status: Ordered traMADol 50 mg oral tablet Start: 05/16/23 10:39:00 EST, 20 each, TAKE HALF TABLET TO 1 FULL TAB BY MOUTH ONCE DAILY NEEDEDFOR PAIN Start Date: 05/16/23 Status: Ordered Vitamin D3 Start: 09/06/17 9:22:00, 4000IU Start Date: 09/06/17 Status: Ordered Mental Status 08/08/23 Barriers to Learning one year None evide nt Mandatory Health Literacy Documentation Yes Health Literacy Communication Barriers N ever Primary Language Bulgarian Problem List Condition Confirmation Course Effective Dates Status Health St atus Informant Arthritis of right knee Confirmed Active History of heart disease Confirmed Active History of kidney stones Confirmed Active History of basal cell carcinoma Confirmed Active HTN (hypertension) Confirmed Active Right knee pain Confirmed Active Skin lesion Confirmed Active Diagnosis Diagnosis Type Effective Dates Health Status Cl inical Service Informant Arthritis of right knee Discharge Diagnosis 08/08/23 Procedures Procedure Date Related Diagnosis Body Site Status Hysterectomy 1 Completed Rectocele 2 Completed [id number] Social History Social History Type Response Smoking Status Never smoked cigaret hardeep Sex Female Ortho Outpt Note * MILO Mansfield, Bisi R: PERFORM Event Display: Ortho Outpt Note Authored Date: [id number] ORTHOPAEDICS OUTPATIENT NOTE Name: MAGALYS EM Patient Number: [id number] : 1940 Date of Service: 08/08/2023 Chief Complaint: follow up right knee; s/p euflexxa injections HPI: Patient is here today for follow-up of her right knee status post Euflexxa injections. She hadthe injections 2 months ago and states that the pain is improved. She says that she continues to have some burning pain in the front of her knee but the pain that she had on the medial side of her knee is much improved. She is pleased with her results and would like to continue the series for as long as possible. OBJECTIVE Vitals: Last Updated 08/08/23 11:23 Date Temp BP Location Pulse RR SpO2 Pain 08/08/23 1 05/23/23 0 05/16/23 5 Physical Exam Exam of her right knee: She has a trace to small effusion. No erythema or warmth. No ecchymosis. Range of motion is 0 to 110 degrees comfortably. Positive crepitation with flexion extension. Medial joint line tenderness with palpation. Strength is 5/5. No distal edema. Ambulates with a slight antalgic gait with the assistance of a cane. ASSESSMENT: DJD right knee, status post viscosupplementation series PLAN: She can continue activities as tolerated. Continue use of her cane for long distances. We will authorize for another series again in approximately 4 months of her right knee. Ice and elevate asneeded. We elected not to do any type of aspiration injection today even with her small effusion. She can do [id number]-[id number] anti-inflammatories or Tylenol. Call with any worsening problems, questions or concerns. All questions were answered. This chart was completed utilizing [employer] voice recognition software. Grammatical errors,random word insertions, pronoun errors, and in complete sentences are an occasional consequence of the system. Any questions or concerns about the content, text, or information contained within the body of this dictation should be addressed directly to the provider for clarification. Electronic Signature on File Electronically Reviewed/Signed by: Bisi Mansfield PA-C Author Signature Dt/Tm:08/08/2023 12:47PM Division of Sports Medicine Electronically Reviewed/Signed by: MD Luis Miguel Huitronigner Signature Dt/Tm: 08/08/2023 12:51PM Division of Sports Medicine [facility] Patient Care team information Care Team Personnel Name: MD Charlene, Denise Mcdermott Position: Referring DIRECT Member Role: Primary Care Provider Address: Address: [address] [place] [id number] [place] Care Team Related Persons Name: EARL EM Address: home [address] [place] [phone] Name: BERNARDO EM Address: home [address] [place] [phone]
--- OUTSIDE RECORDS SUMMARY | 2023-08-24 09:38 | External Medical Summary | Continuity of Care Document ---
Author Name Unknown Organization [facility] [address] [place], [place] [address] Address [address] [place] [phone] Care Team Providers Care C 13 Catapult Operator Name Role Phone Denise Chang V Primary Care Ph ysician [phone] Encounter [facility] [place] [id number] Date(s): 05/16/23 - 05/16/23 [facility] [address] [place] [address] [facility] [address] [place] [address] Encounter Diagnosis Right knee DJD(Discharge Diagnosis) - 05/16/23 Discharge Disposition: Home or Self Care Attending Physician: MILO Mansfield Jennifer R Allergies, Adverse Reactions, Alerts Substance Reaction Severity Status amoxicillin hives Active lisinopril rash Active Benadryl rash Active red dye hives Active Pradaxa hives Active Assessment and Plan Extracted from: Title:Clinical Document Author:MILO Mansfield, Ramakrishna Gutierrez Date:05/16/23 ORTHOPAEDICS OUTPATIENT NOTE Name: MAGALYS EM Patient Number: [id number] : 1940 Date of Service: 05/16/2023 Chief Complaint: DJD right knee HPI: Patient is here today for the start of her Euflexxa series into her right knee. She did well with the cortisone injection although it did not last more than 2 weeks. She continues to have pain on a daily basis in her right knee. She uses a cane to assist with ambulation. She has never had this Euflexxa in the past. She is hopeful that we will be beneficial. OBJECTIVE Vitals: Last Updated 05/16/23 10:39 Date Temp BP Location Pulse RR SpO2 Pain 05/16/23 5 03/24/23 8 02/24/23 10 Physical Exam Exam of her right knee: No effusion. No erythema. No ecchymosis. Ambulates with an antalgic gait with the assistance of a cane. Stable ligamentous exam to the right knee. Medial and lateral joint line tenderness. Positive crepitation with flexion extension. Range of motion 0 to 120 degrees. ASSESSMENT: DJD right knee, Euflexxa injection #1 of 3 PLAN: Recommended ice, anti-inflammatories, activity modification as necessary. Call with any problems, questions or concerns. Follow-up next week as scheduled. Procedure: Patient was placed in the supine position. Timeout verbal consent was obtained. Risk and benefits of the injection were discussed. Injection site confirmed by Paige Preciado LPN. Right knee was bumped with a rolled towel for comfort and the superolateral pouch was marked, cleansed with alcohol, anesthetized with ethyl chloride, cleansed with alcohol again. Then injected her first vial of Euflexxa into her right knee. It was free-flowing throughout the joint. She tolerated the injection well. Pressure was applied for hemostasis and a Band-Aid is applied to the injection site. This chart was completed utilizing [employer] voice recognition software. Grammatical errors, random word [...] R knee. Please ship to physician's office: [id number] [place] [id number], Note to Pharmacy: R KNEE DJD M17.11, Pharmacy: [facility]. Start Date: 03/24/23 Stop Date: 04/14/23 Status: [...] Start Date: 09/06/17 Status: Ordered Mental Status 05/16/23 Barriers to Learning one year None evide nt Mandatory Health Literacy Documentation Yes Health Literacy Communication Barriers N ever Primary Language Turkish Problem List Condition Confirmation Course Effective Dates Status Health St atus Informant Arthritis of right knee Confirmed Active History of heart disease Confirmed Active History of kidney stones Confirmed Active History of basal cell carcinoma Confirmed Active HTN (hypertension) Confirmed Active Right knee pain Confirmed Active Skin lesion Confirmed Active Diagnosis Diagnosis Type Effective Dates Health Status Cl inical Service Informant Right knee DJD Discharge Diagnosis 05/16/23 Non-Specified Procedures Procedure Date Related Diagnosis Body Site Status Hysterectomy 1 Completed Rectocele 2 Completed [id number] Social History Social History Type Response Smoking Status Never smoked cigaret hardeep Sex Female Ortho Outpt Note * MILO Mansfield, Bisi R: PERFORM Event Display: Ortho Outpt Note Authored Date: [id number] ORTHOPAEDICS OUTPATIENT NOTE Name: MAGALYS EM Patient Number: [id number] : 1940 Date of Service: 05/16/2023 Chief Complaint: DJD right knee HPI: Patient is here today for the start of her Euflexxa series into her right knee. She did well with the cortisone injection although it did not last more than 2 weeks. She continues to have pain on a daily basis in her right knee. She uses a cane to assist with ambulation. She has never had thisEuflexxa in the past. She is hopeful that we will be beneficial. OBJECTIVE Vitals: Last Updated 05/16/23 10:39 Date Temp BP Location Pulse RR SpO2 Pain 05/16/23 5 03/24/23 8 02/24/23 10 Physical Exam Exam of her right knee: No effusion. No erythema. No ecchymosis. Ambulates with an antalgic gait with the assistance of a cane. Stable ligamentous exam to the right knee. Medial and lateral joint line tenderness. Positive crepitation with flexion extension. Range of motion 0 to 120 degrees. ASSESSMENT: DJD right knee, Euflexxa injection #1 of 3 PLAN: Recommended ice, anti-inflammatories, activity modification as necessary. Call with any problems, questions or concerns. Follow-up next week as scheduled. Procedure: Patient was placed in the supine position. Timeout verbal consent was obtained. Risk andbenefits of the injection were discussed. Injection site confirmed by Paige Preciado LPN. Right knee was bumped with a rolled towel for comfort and the superolateral pouch was marked, cleansedwith alcohol, anesthetized with ethyl chloride, cleansed with alcohol again. Then injected her first vial of Euflexxa into her right knee. It was free-flowing throughout the joint. She tolerated the injection well. Pressure was applied for hemostasis and a Band-Aid is applied to the injection site. This chart was completed utilizing [employer] voice recognition software. Grammatical errors,random word insertions, pronoun errors, and in complete sentences are an occasional consequence of the system. Any questions or concerns about the content, text, or information contained within the body of this dictation should be addressed directly to the provider for clarification. Electronic Signature on File Electronically Reviewed/Signed by: Bisi Mansfield PA-C Author Signature Dt/Tm:05/16/2023 11:44AM Division of Sports Medicine Electronically Reviewed/Signed by: Bandar Larios MD Cosigner Signature Dt/Tm: 05/16/2023 04:48 PM Division of Sports Medicine [facility] Patient Care team information Care Team Personnel Name: MD Charlene, Denise Mcdermott Position: Referring DIRECT Member Role: Primary Care Provider Address: Address: [facility] [address] [place] [address] Care Team Related Persons Name: EM EARL Address: home [address] [facility] [place] [phone] Name: MARIA ANTONIA BERNARDO Address: home [address] [facility] [facility] [address] [place] [id number]
--- NOTE | 2023-08-24 11:53 | Surgery Progress Note ---
Date of Service August 24, 2023 Assessment & Plan (1) Bowel obstruction: Plan: Start clears No plans for operative intervention She has had some return of bowel function already Admission and Anticipated Discharge Date Admission Date: August 23, 2023 Subjective Pt seen and examined. Abdominal pain improved. Had some flatus and BM. No N/V. Review of Systems Constitutional: no fever and no chills Gastrointestinal: + abdominal pain; no nausea and no vomit ing Physical Exam Constitutional: WD/WN, vitals as above Gastrointestinal (Abdomen): Inspection/Auscultation: abdomen normal to inspection; abdomen not distended Percussion/Palpation: abdomen soft; abdomen nontender and no guarding Results & Data Vital Signs (Past 12 Hours) Vital Signs Temp Pulse Resp BP BP Pulse Ox O2 Del Method 08/24/23 08:07 36.5 C 73 16 120/71 100 Room Air 08/24/23 00:18 Room Air 08/24/23 00:18 36.4 C L 96 H 18 129/68 96 Room Air PG Care Time/CCT Total # of Minutes Spent Total Time Spent with Patient: Total time spent is greater than 50% in coordination of care (as documented) at patient's floor/unit and/or counseling patient: Coding Level of Care Code 75933 SUB INP/OBS CARE 08/03MIN Diagnoses Bowel obstruction K56.609 Intestinal obstruction type: obstruction due to adhesions (1) Bowel obstruction Intestinal obstruction type: obstruction due to adhesions
--- NOTE | 2023-08-24 13:04 | Billing Data ---
Date of Service August 24, 2023 Coding Level of Care Code 47718 SUB INP/OBS CARE
[2023-08-24] MEDS: METOPROLOL SUCC 50MG EXT REL TAB PO SCH (20:35)
--- NOTE | 2023-08-25 05:59 | Electrocardiogram Report ---
Test Reason : Blood Pressure : / mmHG Vent. Rate : 098 BPM Atrial Rate : 000 BPM P-R Int : 000 ms QRS Dur : 136 ms QT Int : 380 ms P-R-T Axes : 000 -84 055 degrees QTc Int : 485 ms Atrial fibrillation Left axis deviation Non-specific intra-ventricular conduction block Anterior infarct Possible Inferior infarct Abnormal ECG When compared with ECG of 30-OCT-2022 11:10, No significant change Confirmed by Luis Manuel Khan ([id number]) on 08/25/2023 5:59:23 AM Referred By: REFERRED SELF Confirmed By:Luis Manuel Khan
--- NOTE | 2023-08-25 13:25 | Surgery Progress Note ---
Date of Service August 25, 2023 Assessment & Plan (1) Bowel obstruction: Plan: Patient here with SBO Advanced to fulls but some nausea reported this AM Abd soft with mild tenderness in the L mid abdomen Would await further diet advancement until pain, nausea improves and ongoing + bowel function [facility] covering the wknd as above. had some mild nausea after eating earlier. will re-image with KUB to evaluate. extensive surgical hx and surgical intervention would only be entertained as a last resort. Admission and Anticipated Discharge Date Admission Date: August 23, 2023 Subjective Patient denies pain, but does report abdominal "discomfort". She had some nausea this AM with her full liquids. No BM reported. Physical Exam Physical Exam: awake/alert, sitting up in chair Gastrointestinal (Abdomen): Percussion/Palpation: + abdomen tender (to L mid abdomen) and abdomen soft Results & Data Vital Signs (Past 12 Hours) Vital Signs Temp Pulse Resp BP Pulse Ox O2 Del Method 08/25/23 07:32 97.3 F L 78 18 120/68 96 Room Air PG Care Time/CCT Total # of Minutes Spent Total Time Spent with Patient: Total time spent is greater than 50% in coordination of care (as documented) at patient's floor/unit and/or counseling patient: Coding Level of Care Code 70122 SUB INP/OBS CARE 08/03MIN Diagnoses Bowel obstruction K56.609 Intestinal obstruction type: obstruction due to adhesions (1) Bowel obstruction Intestinal obstruction type: obstruction due to adhesions
--- NOTE | 2023-08-25 15:48 | XRay Report ---
KUB CLINICAL HISTORY: Generalized abdominal pain. Follow-up bowel obstruction. FINDINGS: An AP, portable, supine abdominal radiograph is correlated with abdominal CT dated 4. There is a nonobstructing abdominal bowel gas pattern. Mild fecal retention is seen throughout the colon. Surgical clips project over the pelvis. No evidence of intraperitoneal free air is seen on th is supine image. There are no abnormal abdominal calcifications. The skeletal structures are osteopen ic and appear intact. There is moderate to advanced lumbosacral spondylosis as well as scoliosis. IMPRESSION: There is no radiographic evidence of bowel obstruction. The bowel obstruction suggested b y CT on 08/23/2023 is not appreciated by x-ray. Electronically signed by: John Lara M.D. 08/25/2023 3:46 PM
--- NOTE | 2023-08-25 19:08 | Hospitalist Progress Note ---
Date of Service August 25, 2023 Assessment & Plan (1) Bowel obstruction: (2) Atrial fibrillation: Plan 1) Bowel obstruction: Almost certainly adhesional. No alarm signs, abdomen is tender without guarding or rebound. At the same time, still having some nausea after full liquids and still having some pain on examhold diet at full liquids for now. Advance once her clinical picture improves. (2) Atrial fibrillation: Rate controlled, anticoagulated Anticipate being able to go home once she is discharged. Admission and Anticipated Discharge Date Admission Date: August 23, 2023 Subjective feeling about the same as yesterday and was queasy after full liquids a little Review of Systems Review of Systems: All systems reviewed & are unremarkable except as noted in HPI & below Physical Exam Physical Exam: aaox3 pleasant nad heent nc at mmm breathing unlabored no accessory muscles good effort skin no rashes no pallor or icterus abd soft nd but still mild LLQ tender no guarding or rebound Results & Data Results & Data Vital Signs (Past 12 Hours) Vital Signs Temp Pulse Resp BP Pulse Ox O2 Del Method 08/25/23 07:32 97.3 F L 78 18 120/68 96 Room Air PG Care Time/CCT Total # of Minutes Spent Total Time Spent with Patient: Total time spent is greater than 50% in coordination of care (as documented) at patient's floor/unit and/or counseling patient: Coding Level of Care Code 96425 SUB INP/OBS CARE 2/35MIN Diagnoses Bowel obstruction K56.609 Intestinal obstruction type: obstruction due to adhesions Chronic atrial fibrillation I48.2 Atrial fibrillation type: chronic (1) Bowel obstruction Intestinal obstruction type: obstruction due to adhesions (2) Atrial fibrillation Atrial fibrillation type: chronic Qualified Code(s): I48.2 - Chronic atrial fibrillation
--- NOTE | 2023-08-26 10:15 | Hospitalist Progress Note ---
Date of Service August 26, 2023 Assessment & Plan (1) Abdominal pain: (2) Nausea & vomiting: (3) Bowel obstruction: Plan 1) Bowel obstruction: 83yo female presenting with one day of abdominal pain and nausea. Found to have SBO. Patient with multiple abdominal surgeries in the past. Presently pain is well controlled. Minimal nausea. -transitioned to clears, then full liquids, will advance diet as tolerated -Gentle IVF with LR at 100mL/hr x 2L, -Electrolyte repletion, -Zofran PRN nausea, -Morphine PRN pain -General Surgery consulted: No plans for operative intervention as pt's bowel function already returning (2) Atrial fibrillation: Chronic. HR, 96 at admission -Continue Metoprolol 100mg, PO qPM -Continue Apixaban anticoagulation, 5 mg, PO, BID F/E/N- LR at 100mL/hr x 2L, electrolytes WNL, NPO for now Ppx - Continue Apixaban Code - Full Dispo - Admit to Medical Admission and Anticipated Discharge Date Admission Date: August 23, 2023 Results & Data Results & Data Vital Signs (Past 12 Hours) Vital Signs Temp Pulse Resp BP Pulse Ox O2 Del Method 08/26/23 07:37 36.4 C L 71 16 132/75 95 Room Air (3) Bowel obstruction Intestinal obstruction type: obstruction due to adhesions
--- NOTE | 2023-08-26 15:22 | Discharge Summary ---
Date of Service August 26, 2023 Admission HPI Per Admitting Provider Samira Rojas is a pleasant 83yo female with histoyr of HTN, HLP, AF on Apixaban anticoagulation presenting with abdominal pain. Patient felt well this morning. She went to an appointment in the morning. Around 12:30 she developed mid-abdominal bandlike discomfort - sharp and stabbing in nature. Her pain lasted until around 18:00. She had a little bit of nausea and made herself vomit with little improvement in her pain. Her pain did resolve for a short time but is returning now. She is not passing flatus. Last BM was this AM - normal, non-bloody. No report of fever, chills, abdominal distention. She has had multiple bowel surgeries in the past - prior hernia repair, appendectomy and hysterectomy, partial colon resection for diverticulitis s/p ostomy placement with subsequent reversal. No prior bowel obstructions. In the ER she is afebrile, HD stable Workup as below suggestive of SBO. She was evaluated by General Surgery in the ER. ER Course: Pepcid 20mg IV NSS 1L Tylenol 1gm IV Admission Exam Per Admitting Provider General: patient resting comfortably, NAD, non-toxic in appearance, AA&O x 4 Skin: warm, dry, intact, no rashes or lesions HEENT: NC/AT, PERRL, EOMI, anicteric sclera, conjunctiva without injection, external ear normal to inspection and nontender, nares patent, moist mucus membranes, dentition intact, no oropharyngeal lesions, neck supple, trachea midline, no LAD, no thyromegaly, no JVD Heart: +S1/S2, irregularly irregular, no m/r/g Lungs: equal air entry bilaterally, no rales/rhonchi/wheezes Abd: markedly diminished bowel sounds, soft, non-distended, tender to palpation without rebound or guarding, no masses/organomegaly/ascites Ext: warm, 2+ pulses in UE/LE bilaterally, no clubbing/cyanosis or edema Neuro: nonfocal, patient AA&O x 4, speech intact, no facial droop, moving all extremities on command with equal strength 5/5 Principal Diagnosis small bowel obstruction Discharge Exam Constitutional WD/WN, vitals as above Neck trachea midline, no thyromegaly Respiratory normal respiratory effort, lungs clear to auscultation Cardiovascular RRR, no murmur, no edema Gastrointestinal (Abdomen) normal bowel sounds, soft, nontender, no hepatosplenomegaly Skin no rashes, warm and dry Psychiatric A+Ox3, euthymic affect Discharge Data Allergies Allergy/AdvReac Type Severity Reaction Status Date / Time blue dye Allergy Intermediate hives Verified 08/23/23 22:02 dabigatran etexilate Allergy Intermediate hives Verified 08/23/23 22:02 diphenhydramine Allergy Intermediate HIVES Verified 08/23/23 22:02 amoxicillin Allergy Mild hives Verified 08/23/23 22:02 lisinopril Allergy Mild hives Verified 08/23/23 22:02 red dye Allergy Mild hives Verified 08/23/23 22:02 yellow dye Allergy Mild hives Verified 08/23/23 22:02 Consultations 08/23/23 22:12 ED Decision to Admit Stat 08/23/23 23:12 Consult General Surgery Routine Ordered Studies 08/23/23 20:19 CT abd pelvis IV con only Stat Hospital Course (1) Abdominal pain: (2) Nausea & vomiting: (3) Bowel obstruction: Plan #Small bowel obstruction: Patient presented with abdominal pain and nausea, CT demonstrated small bowel obstruction, likely secondary to adhesions given h/o multiple abdominal surgeries. Patient managed with supportive care, brief bowel rest followed by diet advancement. General surgery consulted, no operative intervention war ranted. #Afib: Home meds continued Total Time Total Time Spent Total Time Spent (In Minutes): <30 Discharge Plan Discharge Items Patient Disposition: Home - Self-Care Reason For Visit: SMALL BOWEL OBSTRUCTION Discharge Diagnosis: small bowel obstruction Activity: Resume your previous activity Non-emergency contact: Primary Care Provider Call non-emergency contact if: your symptoms worsen and your pain is not controlled Follow-up/Referrals: Denise Garner MD [Primary Care Provider] - Diet: Regular and Low Fiber Addtl Attending Provider Instructions: You were admitted to the hospital due to a small bowel obstruction. You were tr eated with supportive care, which included bowel rest followed by gradual diet reintroduction. Upon discharge, you may continue to advance your diet as tolerated. A discharge summary will be sent to your primary care physician to ensure continuity of care. Please bring this discharge summary with you to your next office appointment so that your provider can review it at that time. Medications: No changes were made to your home medications. Your medication list has been reviewed and reconciled upon discharge to ensure accuracy and continuity of care. An updated list of all your medications is included with your hospital discharge paperwork. Please review this list closely and make note of any changes to your medications. Follow up appointments: - Make a follow up appointment with your PCP within the next week. It is very important that you follow up with them shortly after discharge from the hospital. - Keep all of your follow up appointments as already scheduled. If you cannot make an appointment, notify your provider. CONTACT YOUR PRIMARY CARE PROVIDER if you experience any of the following: - Difficulty following your treatment plan - Difficulty taking any of your medications CALL 911 OR GO TO THE EMERGENCY DEPARTMENT if you experience any of the following: - Sudden, severe abdominal pain or nausea/vomiting - Severe chest pain or chest pain that radiates to your jaw or arm - Sudden, severe shortness of breath or difficulty breathing Pending Studies at Discharge: No Stand-Alone Forms: My [facility], Smoking Cessation Medications and DC Order Prescriptions: Continued omega 0-yan-fxd-fish oil [Fish Oil] 1,000 mg (120 mg-180 mg) Capsule 1 cap PO QPM Qty: 0 cholecalciferol (vitamin D3) [Vitamin D3] 50 mcg (2,000 unit) capsule 2,000 unit PO QAM atorvastatin 20 mg tablet 20 mg PO HS Qty: 90 3RF tramadol 50 mg tablet 25 - 50 mg PO DAILY PRN (Reason: pain) Qty: 20 0RF Eliquis 5 mg tablet 5 mg PO BID Qty: 180 3RF metoprolol succinate 100 mg tablet extended release 24 hr 100 mg PO QPM Qty: 90 3RF Discharge Orders: Discharge Order (Routine); Ordered 08/26/23 Ordered By: Nick Felder/Other Patient Handouts: Small Bowel Obstruction Admission Data Admit Date/Time: 08/23/23 22:27 Attending Provider: Rajeev Sim Admit Provider: Little Carbone Primary Care Provider: Denise Garner V. Other Providers: Little Carbone; Triston Ramirez Other Interventions: Discharge Summary Assessment (RN) Last Done: 08/26/23 15:29 Supervising Physician Co-Signing Physician Notes I personally examined the patient and verified all preston points of history and exam, discussed case, and agree with decision making with Dr Schultz feeling well. Ate regular food. Belly does not hurt. Would very much like to go home. Vitals noted, in general she is awake and alert pleasant no distress. HEENT normocephalic atraumatic mucous membranes moist. Abdomen soft nondistended nontender no masses organomegaly. Extremities without sinus clubbing or edema. Small bowel obstructionalmost certainly due to postoperative adhesions Improved. Safe/stable for home. Outpatient follow-up. Anticoagulated otherwise as above Resident Activity Tracking Resident Involvement: Resident Care Provided Care Provided: Adult Hospital Medicine
--- NOTE | 2023-08-26 16:15 | Billing Data ---
Date of Service August 26, 2023 Coding Level of Care Code 22911 IN/OBS DISCH 30 MIN/LESS
== END 2023-08-26 15:56 | disposition home or self-care (01) | DRG 389 ==
LOC: ED 19:02 → 3W 22:27 → SUATTDRO 22:27 → 3W 22:55